=== PATIENT | male | born 1955 | race Caucasian/White ===

== ENCOUNTER 2017-01-12 14:19 | Emergency (ER) | payer SELFPAY ==
[~2017-01-12] VITALS: Ht 175.3 cm; Wt 77.3 kg
[~2017-01-12 14:19] MED LIST: ALPR.25T PO; ALPR.5T PO; ALPR0.5T3; ASP81CT; AZIT-21 PO; BENTYL; CALC600T PO; CYCL10TA45 PO; DICL/MIS50; DICL25CA4; DULO20CA PO; DULO60CA6; DULO60CA6 PO; ESCI5TAB; ESCI5TAB PO; ESCT10T; FLX10C; GUAI120S36 PO; HCT25T PO; HYOS0.3710 PO; IBUP-15 PO; LACT1CAP62 PO; LISI1TAB8; LISI20TA; LISI20TA PO; LISINOPRIL; MELO-195 PO; NF-ESOM40C; OLME20TA21; OLME20TA5 PO; OMEP-10; OMEP20CA6 PO; POTA99TA15 PO; PROM25SU10 PR; RNT150T PO; TRAM50TA2 PO; TRAZ150T42 PO; TRM50T PO; [UNRECOGNIZED DRUG - OTHER]; benicar
[2017-01-12 14:31] VITALS: BP 200/105
--- OUTSIDE RECORDS SUMMARY | 2017-02-15 06:18 | XMS REPORT ---
Author Author CALEB ROMAN [facility] Address [address] [place] [address] Care Team Providers Care Programming Internship Name Role Phone CALEB ROMAN Unavailable PROBLEMS Type Condition ICD9-CM Code [id number] Code Onset Dates Condition Status SNOMED Code Problem Hypertension I10 Active 01755142 Problem Reflux esophagitis 530.11 Active [id number] ALLERGIES Unknown Allergies SOCIAL HISTORY No smoking Hx information available PLAN OF CARE VITAL SIGNS Height 70 in 2016-04-28 Blood pressure systolic 150 mmHg 2016-04-28 Blood pressure diastolic 88 mmHg 2016-04-28 MEDICATIONS Unknown Medications RESULTS No Results PROCEDURES No Known procedures IMMUNIZATIONS No Known Immunizations
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
--- OUTSIDE RECORDS SUMMARY | 2017-02-15 06:18 | XMS REPORT ---
Author CALEB Rai [facility] e[employer] Address Unknown Phone Unavailable Care Team Providers Care Drafter Plumbing Name Role Phone CALEB ROMAN CP Unavailable Allergies, Adverse Reactions, Alerts Substance Reaction Event Type Codeine-Guaifenesin hives Drug Allergy Problems Problem Type Condition Code Onset Dates Condition Status Problem Reflux esophagitis 530.11 Active Assessment Hypertension I10 Active Problem Hypertension I10 Active Medications Medication Code System Code Instructions Start Date End Date Status Dosage Zaditor [facility] [address]-89 0.025 % Ophthalmic Twice a day as needed for itchy eye March 23, 2015 1 drop into affected eye Lisinopril-Hydrochlorothiazide [facility] [id number] 20-12.5 MG Orally Once a day 1 tablet Procedures Procedure Coding System Code Date Office Visit, Est Pt., Level 3 CPT-4 25315 Oct 22, 2015 Vital Signs Date/Time: Oct 22, 2015 Temperature 98.7 F Weight 191.0 lbs Height 70 in BMI 27.40 Index Blood Pressure Diastolic 77 mmHg Blood Pressure Systolic 175 mmHg Cardiac Monitoring Heart Rate 80 bpm Results No Known Results Summary Purpose eClinicalWorks Submission
--- OUTSIDE RECORDS SUMMARY | 2017-02-15 06:18 | XMS REPORT ---
Demographics Address [address] [place] [address] Preferred Language Unknown Marital Status Unknown [employer] Affiliation Unknown Race White Ethnic Group Not or Author Author CALEB ROMAN [facility] eClinical[employer] Address Unknown Phone Unavailable Care Team Providers Care Piping Drafter Name Role Phone CALEB ROMAN Unavailable Allergies No Known Allergies Problems Problem Type Condition Code Onset Dates Condition Status Problem Palpitations 785.1 Active Problem Other abnormal glucose 790.29 Active Problem Acute bronchitis 466.0 Active Problem Reflux esophagitis 530.11 Active Medications Medication Code System Code Instructions Start Date End Date Status Dosage Lisinopril-Hydrochlorothiazide [facility] [address]-49 20-12.5 MG Orally Once a day December 22, 2014 1 tablet Results No Known Results Summary Purpose eClinicalWorks Submission
--- OUTSIDE RECORDS SUMMARY | 2017-02-15 06:18 | XMS REPORT ---
Demographics Address [address] [place] [address] Preferred Language Unknown Marital Status Unknown [employer] Affiliation Unknown Race White Ethnic Group Not or Author Author CALEB ROMAN [facility] eClinical[employer] Address Unknown Phone Unavailable Care Team Providers Care Hse Coordinator Name Role Phone CALEB ROMAN CP Unavailable Allergies No Known Allergies Problems Problem Type Condition ICD-9 Code Onset Dates Condition Status Problem Palpitations 785.1 Active Problem Other abnormal glucose 790.29 Active Problem Acute bronchitis 466.0 Active Problem Reflux esophagitis 530.11 Active Medications Medication Code System Code Instructions Start Date End Date Status Dosage Lisinopril-Hydrochlorothiazide [facility] [address]-90 20-12.5 MG Orally Once a day December 22, 2014 1 tablet Results No Known Results Summary Purpose eClinicalWorks Submission
== END 2017-01-12 15:18 | disposition left against medical advice (07) ==
LOC: EDUNIT# 14:19 → ER 14:22
DX: I10 Essential (primary) hypertension (principal); Z53.21 Procedure and treatment not carried out due to patient leaving prior to being seen by health care provider
CPT/HCPCS: 99283

== ENCOUNTER 2017-05-09 19:48 | Emergency (ER) | payer SELFPAY ==
[~2017-05-09] VITALS: Ht 175.3 cm; Wt 77.3 kg
[2017-05-09] MEDS ORDERED: lisINopril 10 MG (PRINIVIL) TAB PO ONE (20:30)
--- NOTE | 2017-05-09 20:38 | Diagnostic Imaging Report ---
INDICATION: Injury to left elbow. EXAMINATION: AP, oblique and lateral views of the left elbow were obtained. FINDINGS: No fracture or acute bony abnormality is seen. There is some osteophyte formation of the olecranon process. There is soft tissue swelling, dorsally. IMPRESSION: No acute fracture or acute bony abnormality. Dictated by: Dictated on workstation # [id number]
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
[2017-05-09] MEDS ORDERED: LISI10TA2 PO (20:59)
[2017-05-09] MEDS ORDERED: SULF1TAB35 PO (20:59)
[2017-05-09 21:05] VITALS: BP 154/90
== END 2017-05-09 21:05 | disposition home or self-care (01) ==
LOC: EDUNIT# 19:48 → ER 19:50
DX: S59.902A Unspecified injury of left elbow, initial encounter (principal); M70.22 Olecranon bursitis, left elbow; I10 Essential (primary) hypertension; I25.2 Old myocardial infarction; K21.9 Gastro-esophageal reflux disease without esophagitis; M19.90 Unspecified osteoarthritis, unspecified site; E11.9 Type 2 diabetes mellitus without complications; F41.9 Anxiety disorder, unspecified; F32.9 Major depressive disorder, single episode, unspecified; Z98.1 Arthrodesis status; W22.09XA Striking against other stationary object, initial encounter
CPT/HCPCS: 73080; 99283

== ENCOUNTER 2017-05-18 11:59 | Emergency (ER) | payer SELFPAY ==
[~2017-05-18] VITALS: Ht 175.3 cm; Wt 80.5 kg
[~2017-05-18 11:59] MED LIST changes: +LISI10TA2 PO; +SULF1TAB35 PO
[2017-05-18] MEDS ORDERED: AUGMENTIN 875 MG TAB (AMOXICILLIN/CLAVULANATE) PO SCH (12:45)
[2017-05-18] MEDS ORDERED: TRAM50TA2 PO (12:45)
[2017-05-18] MEDS ORDERED: AMOX-358 PO (12:45)
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
--- NOTE | 2017-05-18 12:55 | Diagnostic Imaging Report ---
INDICATION: Left elbow pain and redness. COMPARISON: 05/09/2017. FINDINGS: Three views of the left elbow show no fractures, dislocations, or other acute bony abnormalities identified. Joint spaces are well maintained throughout. There is some soft tissue swelling, posteriorly. No radiopaque foreign bodies are identified. IMPRESSION: Posterior soft tissue swelling, but no radiographic evidence of underlying acute fracture or dislocation of the left elbow. Dictated by: Dictated on workstation # [id number]
[2017-05-18 13:18] VITALS: BP 130/76
== END 2017-05-18 13:18 | disposition home or self-care (01) ==
LOC: EDUNIT# 11:59 → ER 12:02
DX: L03.114 Cellulitis of left upper limb (principal); I25.2 Old myocardial infarction; I10 Essential (primary) hypertension; K21.9 Gastro-esophageal reflux disease without esophagitis; M19.90 Unspecified osteoarthritis, unspecified site; E11.9 Type 2 diabetes mellitus without complications; F41.9 Anxiety disorder, unspecified; F32.9 Major depressive disorder, single episode, unspecified
CPT/HCPCS: 73080; 99283

== ENCOUNTER 2017-12-22 10:20 | Emergency (ER) | payer SELFPAY ==
[~2017-12-22] VITALS: Ht 175.3 cm; Wt 77.6 kg
[~2017-12-22 10:20] MED LIST changes: +AMOX-358 PO
--- OUTSIDE RECORDS SUMMARY | 2017-12-22 10:28 | XMS REPORT | Continuity of Care Document ---
Author Author Counts Include [facility] At [facility] Address Unknown Phone Unavailable Allergies Active Description Code Type Severity Reaction Onset Reported/Identified Relationship to Patient Clinical Status Yes codeine [id number] Drug Allergy Unknown RASH 05/31/2010 Yes codeine Drug Allergy N/A N/A 06/03/2010 Medications There is no data. Problems Date Dx Coded Attending Type Code [...] 311 DEPRESSIVE DISORDER NOS 06/03/2010 401.9 HYPERTENSION ( SYSTEMIC) 06/03/2010 564.1 IRRITABLE BOWEL SYNDROME 06/03/2010 CALEB ROMAN MD 311 DEPRESSIVE DISORDER NOS 06/03/2010 CALEB ROMAN MD 401.9 HYPERTENSION (SYSTEMIC) 06/03/2010 JESSIE CLIFFORD, CALEB 564.1 IRRITABLE BOWEL SYNDROME 06/03/2010 JESSIE CLIFFORD, CALEB 311 DEPRESSIVE DISORDER NOS 06/03/2010 JESSIE CLIFFORD, CALEB 401.9 HYPERTENSION (SYSTEMIC) 06/03/2010 CALEB ROMAN MD 564.1 IRRITABLE BOWEL SYNDROME 06/03/2010 JESISE CLIFFORD, CALEB 311 DEPRESSIVE DISORDER NOS 06/03/2010 [...] 786.59 CHEST PAIN NEC 03/11/2011 Ot V58.69 OT MED,LT, CURRENT USE 07/01/2011 924.9 CONTUSION OF UNSPECIFIED SITE [...] Ot 388.70 OTALGIA NOS 01/06/2014 LISA LEVY ACETYLENE TORCH BURNER Ot 465.9 ACUTE URI NOS 01/06/2014 LISA LEVY ACETYLENE TORCH BURNER Ot 490 BRONCHITIS NOS 01/23/2014 CALEB ROMAN [...] OTHER TOBACCO PRODU 04/07/2016 ERVIN CLIFFORD, DEBORAH Richie Ot M17.11 UNILATERAL PRIMARY OSTEOARTHRITIS, RIGHT 01/13/2017 ERVIN CLIFFORD, DEBORAH Quiroz Ot I10 ESSENTIAL (PRIMARY) HYPERTENSION 01/13/2017 ERVIN CLIFFORD, DEBORAH Quiroz Ot Z53.21 PROC/TRTMT NOT CRD OUT D/T PT LV BEF SEE 05/09/2017 BHUMIKA CLIFFORD, GEOVANNA Cabrera Ot E11.9 TYPE 2 DIABETES MELLITUS WITHOUT COMPLIC 05/09/2017 GEOVANNA BAI MD Ot F32.9 MAJOR DEPRESSIVE DISORDER, SINGLE EPISOD 05/09/2017 GEOVANNA BAI MD Ot F41.9 ANXIETY DISORDER, UNSPECIFIED 05/09/2017 GEOVANNA BAI MD Ot I10 ESSENTIAL (PRIMARY) HYPERTENSION 05/09/2017 GEOVANNA BAI MD Ot I25.2 OLD MYOCARDIAL INFARCTION 05/09/2017 GEOVANNA BAI MD Ot K21.9 GASTRO-ESOPHAGEAL REFLUX DISEASE WITHOUT 05/09/2017 GEOVANNA BAI MD Ot M19.90 UNSPECIFIED OSTEOARTHRITIS, UNSPECIFIED 05/09/2017 GEOVANNA BAI MD Ot M25.522 PAIN IN LEFT ELBOW 05/09/2017 GEOVANNA BAI MD Ot M70.22 OLECRANON BURSITIS, LEFT ELBOW 05/09/2017 GEOVANNA BAI MD Ot S59.902A UNSPECIFIED INJURY OF LEFT ELBOW, INITIA 05/09/2017 GEOVANNA BAI MD Ot W22.09XA STRIKING AGAINST OTHER STATIONARY OBJECT 05/09/2017 BHUMIKA CLIFFORD, GEOVANNA Cabrera Ot Z98.1 ARTHRODESIS STATUS 05/18/2017 LISA LEVY APRN Ot E11.9 TYPE 2 DIABETES MELLITUS WITHOUT COMPLIC 05/18/2017 LISA LEVY APRN Ot F32.9 MAJOR DEPRESSIVE DISORDER, SINGLE EPISOD 05/18/2017 LISA LEVY APRN Ot F41.9 ANXIETY DISORDER, UNSPECIFIED 05/18/2017 LISA LEVY APRN Ot I10 ESSENTIAL (PRIMARY) HYPERTENSION 05/18/2017 LISA LEVY APRN Ot I25.2 OLD MYOCARDIAL INFARCTION 05/18/2017 LISA LEVY APRN Ot K21.9 GASTRO-ESOPHAGEAL REFLUX DISEASE WITHOUT 05/18/2017 LISA LEVY APRN Ot L03.114 CELLULITIS OF LEFT UPPER LIMB 05/18/2017 LISA LEVY APRN Ot M19.90 UNSPECIFIED OSTEOARTHRITIS, UNSPECIFIED 05/18/2017 LISA LEVY APRN Ot M25.522 PAIN IN LEFT ELBOW Procedures Code Description [place] [address] ROUTINE VENIPUNCTURE 12/28/2013 [id number] GFR CALC (RESULT ONLY) 12/28/2013 50480 CMP 12/28/2013 72116 LIPID PANEL 12/28/2013 86171 A1C (IN-HOUSE) 01/06/2014 Results There is no data. Encounters ACCT No. Visit Date/Time Discharge Status Pt. Type Provider Facility Loc./Unit Complaint [id number] 01/23/2014 13:13:00 01/23/2014 23:59:59 [facility] Outpatient CALEB ROMAN MD [id number] 01/06/2014 12:11:00 01/06/2014 23:59:59 [facility] Outpatient CALEB ROMAN MD [id number] 12/28/2013 12:39:00 12/28/2013 23:59:59 [facility] Outpatient CALEB ROMAN MD [id number] 12/15/2013 16:45:00 12/15/2013 23:59:59 [facility] Outpatient CALEB ROMAN MD [id number] 04/05/2013 15:03:00 04/05/2013 23:59:59 [facility] Outpatient CALEB ROMAN MD [id number] 03/24/2013 13:13:00 Document Registration [id number] 05/18/2017 12:02:00 05/18/2017 13:18:00 DIS Emergency LISA LEVY APRN Via [facility] ER LT ELBOW PAIN/BURNING [id number] 05/09/2017 19:50:00 05/09/2017 21:05:00 DIS Emergency GEOVANNA BAI MD [facility] ER L ELBOW PAIN [id number] 01/12/2017 14:22:00 01/12/2017 15:18:00 DIS Outpatient DEBORAH MUELLER MD Via [facility] ER HIGH BLOOD PRESSURE [id number] 04/04/2016 09:32:00 04/04/2016 12:39:00 DIS Emergency DEBORAH MUELLER MD [facility] ER RIGHT KNEE PAIN [id number] 11/06/2014 17:32:00 11/06/2014 19:19:00 DIS Emergency CHIDI CHAO DO Via [facility] ER R SIDE CRAMPING [id number] 01/06/2014 17:50:00 01/06/2014 19:17:00 DIS Emergency LISA LEVY APRN Via [facility] ER EAR ACHE [id number] 03/28/2013 09:37:00 03/28/2013 16:01:00 DIS Emergency NEVILLE GUPTA [facility] ER DIARRHEA [id number] 12/08/2014 04:45:00 Document Registration [id number] 11/06/2014 17:32:00 Document Registration [id number] 03/11/2011 10:17:00 Document Registration [id number] 02/12/2011 16:05:00 Document Registration [id number] 02/07/2011 18:08:00 Document Registration [id number] 02/06/2011 17:03:00 Document Registration [id number] 11/06/2010 19:21:00 Document Registration [id number] 08/08/2010 16:12:00 Document Registration [id number] 05/30/2010 23:50:00 Document Registration [id number] 05/15/2010 10:28:00 Document Registration [id number] 04/13/2010 17:24:00 Document Registration [id number] 04/09/2010 10:49:00 Document Registration [id number] 03/09/2010 23:20:00 Document Registration [id number] 03/05/2010 22:40:00 Document Registration
[2017-12-22] MEDS ORDERED: METF500T4 PO (10:43)
[2017-12-22] MEDS ORDERED: GLIP10TA13 PO (10:44)
[2017-12-22] MEDS ORDERED: NS IV 1000 ML 1,000 ML IV SCH (11:00)
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
[2017-12-22 11:33] LABS: BASOPHILS % (AUTO) 1 % (0-10); EOSINOPHILS # (AUTO) 0.2 10^3/uL (0.0-0.3); EOSINOPHILS % (AUTO) 4 % (0-10); HEMATOCRIT 42 % (40-54); HEMOGLOBIN 15.2 G/DL (13.3-17.7); LYMPHOCYTES # (AUTO) 0.6 X 10^3 (1.0-4.0); LYMPHOCYTES % (AUTO) 13 % (12-44); MEAN CORPUSCULAR HEMOGLOBIN 32 PG (25-34); MEAN CORPUSCULAR HGB CONC 37 G/DL (32-36); MEAN CORPUSCULAR VOLUME 88 FL (80-99); MEAN PLATELET VOLUME 12.5 FL (7.4-10.4); MONOCYTES # (AUTO) 0.6 X 10^3 (0.0-1.0); MONOCYTES % (AUTO) 12 % (0-12); NEUTROPHILS # (AUTO) 3.3 X 10^3 (1.8-7.8); NEUTROPHILS % (AUTO) 70 % (42-75); PLATELET COUNT 105 10^3/uL (130-400); RED BLOOD COUNT 4.74 10^6/uL (4.35-5.85); RED CELL DISTRIBUTION WIDTH 12.1 % (10.0-14.5); WHITE BLOOD COUNT 4.7 10^3/uL (4.3-11.0)
[2017-12-22 11:37] LABS: ALANINE AMINOTRANSFERASE 107 U/L (0-55); ALKALINE PHOSPHATASE 94 U/L (40-136); BILIRUBIN,TOTAL 0.9 MG/DL (0.1-1.0); BUN/CREATININE RATIO 11; CALCIUM 8.9 MG/DL (8.5-10.1); CARBON DIOXIDE 25 MMOL/L (21-32); CHLORIDE 104 MMOL/L (98-107); CREATININE SERUM 1.07 MG/DL (0.60-1.30); GFR ESTIMATED > 60; GLUCOSE 266 MG/DL (70-105); POTASSIUM 4.1 MMOL/L (3.6-5.0); SODIUM 136 MMOL/L (135-145); TOTAL PROTEIN 6.9 GM/DL (6.4-8.2)
--- NOTE | 2017-12-22 11:56 | Diagnostic Imaging Report ---
INDICATION: Cough PA and lateral chest obtained at 1150 hrs am. Heart and mediastinal silhouette are normal in appearance. The lungs are clear. There is no pneumothorax or pleural fluid. IMPRESSION: No acute process in the chest. Dictated by: Dictated on workstation # [id number]
[2017-12-22 12:28] VITALS: BP 148/80
== END 2017-12-22 12:27 | disposition home or self-care (01) ==
LOC: EDUNIT# 10:20 → ER 10:22
DX: B34.9 Viral infection, unspecified (principal); I25.2 Old myocardial infarction; I10 Essential (primary) hypertension; E11.9 Type 2 diabetes mellitus without complications; F41.9 Anxiety disorder, unspecified; F32.9 Major depressive disorder, single episode, unspecified; K21.9 Gastro-esophageal reflux disease without esophagitis; F17.290 Nicotine dependence, other tobacco product, uncomplicated; Z87.19 Personal history of other diseases of the digestive system
CPT/HCPCS: 36415; 71046; 80053; 85025; 96360

== ENCOUNTER 2018-01-26 09:18 | Emergency (ER) | payer OTHER ==
[~2018-01-26] VITALS: Ht 175.3 cm; Wt 81.6 kg
[~2018-01-26 09:18] MED LIST changes: +GLIP10TA13 PO; +METF500T5 PO
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
[2018-01-26] MEDS ORDERED: TRAM-42 PO (10:47)
--- NOTE | 2018-01-26 10:48 | Diagnostic Imaging Report ---
PATIENT HISTORY: Fall 3 weeks ago, pain in the right ribs and right humerus. TECHNIQUE: Two views of the right humerus COMPARISON: None FINDINGS: No acute fracture or dislocation is seen in the right humerus. Alignment appears normal. There are minimal degenerative changes in the right acromioclavicular joint. IMPRESSION: No acute osseous abnormality seen in the right humerus. Dictated by: Dictated on workstation # [id number]
--- NOTE | 2018-01-26 10:51 | Diagnostic Imaging Report ---
INDICATION: 3 weeks post fall. Right-sided rib and arm pain.. TECHNIQUE: Single view chest, along with 3 views right ribs 11:01 AM. CORRELATION STUDY: Chest 12/22/2017 FINDINGS: The heart size, mediastinal configuration and pulmonary vascularity are within normal limits. The lungs are clear with no consolidating infiltrate. There is limited depth of inspiration. There is no significant effusion or pneumothorax. There is no acute displaced right-sided rib fracture. Fusion hardware of the lower cervical spine is present. IMPRESSION: 1. No radiographic findings to suggest acute abnormality of the chest. 2. Negative for acute displaced right-sided rib fracture. Dictated by: Dictated on workstation # [id number]
[2018-01-26 11:00] VITALS: BP 155/87
== END 2018-01-26 11:00 | disposition home or self-care (01) ==
LOC: EDUNIT# 09:18 → ER 09:20
DX: S43.004A Unspecified dislocation of right shoulder joint, initial encounter (principal); S20.211A Contusion of right front wall of thorax, initial encounter; I25.2 Old myocardial infarction; I10 Essential (primary) hypertension; E11.9 Type 2 diabetes mellitus without complications; F41.9 Anxiety disorder, unspecified; F32.9 Major depressive disorder, single episode, unspecified; K21.9 Gastro-esophageal reflux disease without esophagitis; F17.290 Nicotine dependence, other tobacco product, uncomplicated; Z88.5 Allergy status to narcotic agent; Z87.19 Personal history of other diseases of the digestive system; Z79.84 Long term (current) use of oral hypoglycemic drugs; W01.0XXA Fall on same level from slipping, tripping and stumbling without subsequent striking against object, initial encounter
CPT/HCPCS: 71101; 73060

== ENCOUNTER → 2018-03-16 | Outpatient (CLI) | payer OTHER ==
[~2018-03-16] MED LIST changes: +TRAM-42 PO
--- NOTE | 2018-03-16 14:18 | Diagnostic Imaging Report ---
PROCEDURE: MRI right joint upper extremity without contrast. TECHNIQUE: Multiplanar, multisequence MR imaging of the right shoulder was performed without contrast. COMPARISON: Right shoulder pain. INDICATION: Right shoulder pain. FINDINGS: Rotator cuff: Complete tear of the infraspinatus and near-complete tear of the supraspinatus. A few of the anterior-most insertional fibers of the supraspinatus remain intact. The torn fibers of the supraspinatus and infraspinatus are retracted to the level of the glenohumeral joint. Mild fatty atrophy of both the supraspinatus and infraspinatus is present. The teres minor is normal. Subscapularis remains intact. Glenoid labrum: By non-arthrogram imaging, the glenoid labrum appears intact. No para-labral cyst. Long head of biceps: Long head of biceps is normally positioned within the bicipital groove. The intracapsular segment is intact. Bones and cartilage: Humeral head is normal in morphology without fracture. Subcortical edema in the posterior humeral head is likely reactive due to rotator cuff tear and overlying tendinopathy. No glenohumeral chondromalacia. The acromioclavicular joint is normal in alignment without significant degenerative change. Soft tissues: No glenohumeral joint effusion. No MRI findings to suggest adhesive capsulitis. Fluid in the subacromial and subdeltoid space is compatible with full-thickness cuff tear. IMPRESSION: 1. Complete tear of the infraspinatus with near-complete tear of the supraspinatus. The torn fibers are retracted to the level of the glenohumeral joint, and there is mild atrophy of both muscle bellies. 2. Long head of biceps remains intact. 3. Subacromial and subdeltoid bursitis is compatible with full-thickness cuff tear. Dictated by: Dictated on workstation # [id number]
== END ==
LOC: RAD 12:52
PROVIDERS: ATTEND Nurse Practitioner Family
DX: M75.121 Complete rotator cuff tear or rupture of right shoulder, not specified as traumatic (principal); M62.511 Muscle wasting and atrophy, not elsewhere classified, right shoulder
CPT/HCPCS: 73221

== ENCOUNTER 2018-05-03 08:49 | Emergency (ER) | payer OTHER ==
[~2018-05-03] VITALS: Ht 175.3 cm; Wt 83.0 kg
--- OUTSIDE RECORDS SUMMARY | 2018-05-03 08:55 | XMS REPORT ---
Author Author CALEB ROMAN Organization [facility] Address [address] [place] [address] Care Team Providers Care Line Palletizer Name Role Phone CALEB ROMAN Unavailable PROBLEMS Type Condition ICD9-CM Code OEG47-VC Code Onset Dates Condition Status SNOMED Code Problem Acute pain of right shoulder M25.511 Active 88721489 Problem Type 2 diabetes mellitus without complication, without long-term current use of insulin E11.9 Active 275342374 Problem Hypertension I10 Active 05584856 Problem Tear of right rotator cuff, unspecified tear extent M75.101 Active 814717775 ALLERGIES Substance Reaction Event Type Date Status Codeine-Guaifenesin hives Drug Allergy Dec, Active ENCOUNTERS Encounter Location Date Diagnosis [place] [id number] [place] [address]- [address] Mar, [place] [address] [address] February, Acute pain of right shoulder M25.511 ; Hypertension I10 and Type 2 diabetes mellitus without complication, without long-term current use of insulin E11.9 [place] [id number] [place] [address]- 7121 Dec, [facility] [id number] [place] [address] 21841- 1293 Dec, Type 2 diabetes mellitus without complication, without long- term current use of insulin E11.9 [place] [id number] [place] [address]- [address] Dec, [place] [id number] [place] [address]- 1986 Jun, Hypertension I10 [place] [id number] [place] [address] [place] [address] Apr, [facility] [address] [place] [address] Oct, Hypertension I10 [facility] [id number] [place] [address] 8[address] 05 Oct, 2015 [facility] [address] [place] [address] 160[address] May, [facility] [address] [facility] [id number] [place] [address]- 0413 12 Mar, 2015 Allergic conjunctivitis 372.14 [facility] [id number] [place] [address] 8184 14 Jan, 2015 [facility] [address] [place] [address] 6787 13 Jan, 2015 [facility] [address] [place] [address] 1662 Dec, [facility] [address] [place] [address] 3[address] Dec, [facility] [address] [place] [address] 0577 27 Nov, 2014 [facility] [address] [place] [address] 3107 Oct, [facility] [address] [place] [address] 4542 14 Jan, 2014 [facility] [address] [id number] [place] [address]- 1649 14 Jan, 2014 [facility] [address] [place] [address] 4[address] 31 Dec, 2013 [facility] [address] [facility] [id number] [place] [address]- 6516 31 Dec, 2013 [facility] [address] [place] [address] 3471 Dec, [facility] [place] [facility] [address] [id number] [place] [address]- 7571 Dec, [facility] [place] [facility] [address] [id number] [place] [address]- 5813 Dec, [facility] [place] [facility] [address] [id number] [place] [address]- 9658 Dec, [facility] [place] [facility] [address] [id number] [place] [address]- 2680 Dec, [facility] [place] [facility] [address] [id number] [place] [address]- 7360 Dec, [facility] [place] [facility] [address] [id number] [place] [address]- 2338 Dec, [facility] [place] [facility] [address] [id number] [place] [address]- 5783 Dec, [facility] [place] [facility] [address] [id number] [place] [address]- 0965 Dec, [facility] [place] [facility] [address] [id number] [place] [address]- 3834 Oct, [facility] [place] [facility] [address] [id number] [place] [address]- 9584 Oct, [facility] [place] [facility] [address] [id number] [place] [address]- 3243 Sep, [facility] [place] [facility] [address] [id number], [place] [address] Mar, [facility] [place] [facility] [address] [id number] [place] [address]- 7483 24 Mar, 2013 [facility] [place] [facility] [address] [id number] [place] [address]- 6202 Mar, [facility] [place] [facility] [address] [id number] [place] [address]- 1999 Jan, [facility] [place] [facility] [id number] [address] 79[address] Jan, [facility] [address], [place] [address] Jan, [facility] [address], [place] [address]- 8724 Dec, [facility] [address], [place] [address] 5674 Dec, [facility] [address] [address]- 3283 Oct, [facility] [id number] [place] [address] 38462- 6332 Oct, [facility] [address], [place] [address]- 0462 Oct, [facility] [id number] [place] [address] 13804- 2940 Oct, [facility] [address], [place] [address]- 0042 Sep, [facility] [address] [address]- 6332 Sep, [facility] [id number] [address]- [address] Sep, IMMUNIZATIONS No Known Immunizations SOCIAL HISTORY Never Assessed REASON FOR VISIT blood sugar, PT notes it was elevated to 600 last night. PT has had frequent urination and cramping. -[place] [facility] PLAN OF CARE Activity Details Follow Up 4 Weeks Reason: VITAL SIGNS Height 70 in 2017-12-17 Weight 181.6 lbs 2017-12-17 Temperature 98.4 degrees Fahrenheit 2017-12-17 Heart Rate 80 bpm 2017-12-17 Respiratory Rate 20 2017-12-17 BMI 26.05 kg/m2 2017-12-17 Blood pressure systolic 150 mmHg 2017-12-17 Blood pressure diastolic 78 mmHg 2017-12-17 MEDICATIONS Medication Instructions Dosage Frequency Start Date End Date Duration Status Metformin HCl 1000 MG Orally Twice a day 1 tablet with meals 12h 08 Dec, 2017 30 day(s) Active Lisinopril-Hydrochlorothiazide 20-12.5 MG Orally Once a day 1 tablet 24h 30 Active GlipiZIDE 10 mg Orally Once a day 1 tablet 24h Dec, 30 day(s) Active RESULTS No Results PROCEDURES Procedure Date Ordered Result Body Site COMPREHEN METABOLIC PANEL December 17, 2017 INSTRUCTIONS MEDICATIONS ADMINISTERED No Known Medications MEDICAL (GENERAL) HISTORY Type Description Date Medical History hypertension Medical History chronic pancreatitis Medical History irritable bowel syndrome Medical History depression Medical History bone spur - right hip Medical History borderline diabetic Surgical History back surgery - c-spine
--- OUTSIDE RECORDS SUMMARY | 2018-05-03 08:56 | XMS REPORT ---
Author Author CALEB ROMAN Organization [facility] Address [address] [place] [address] Care Team Providers Care Animal Cytologist Name Role Phone CALEB ROMAN Unavailable PROBLEMS Type Condition ICD9-CM Code QRA05-HB Code Onset Dates Condition Status SNOMED Code Problem Type 2 diabetes mellitus without complication, without long-term current use of insulin E11.9 Active 508342133 Problem Hypertension I10 Active 16653838 Problem Reflux esophagitis 530.11 Active 579837910 ALLERGIES Substance Reaction Event Type Date Status Codeine-Guaifenesin hives Drug Allergy Jun, Active ENCOUNTERS Encounter Location Date Diagnosis [facility] [id number] [place] [address] 78639- 0737 Dec, [facility] [id number] [place] [address] 41628- 5944 Dec, Type 2 diabetes mellitus without complication, without long- term current use of insulin E11.9 [facility] [id number] [place] [address] 35178- 7866 Dec, [facility] [id number] [place] [address] 72956- 3011 Jun, Hypertension I10 [facility] [id number] [place] [address] 55952- 9196 Apr, [facility] [id number] [place] [address] 92205- 8188 Oct, Hypertension I10 [facility] [id number] [place] [address] 59636- 0271 Oct, [facility] [id number] [place] [address] 13734- 2681 May, [place] [address] [id number] [place] [address]- 4200 12 Mar, 2015 Allergic conjunctivitis 372.14 [facility] [address] [id number] [place] [address]- 6296 14 Jan, 2015 [facility] [address] [id number] [place] [address]- 9407 13 Jan, 2015 [facility] [address] [id number] [place] [address]- 8696 13 Dec, 2014 [facility] [address] [id number] [place] [address]- 6652 13 Dec, 2014 [facility] [address] [id number] [place] [address]- 3656 27 Nov, 2014 [facility] [address] [facility] [id number] [place] [address]- 3844 Oct, [facility] [address] [facility] [id number] [place] [address]- 8862 14 Jan, 2014 [facility] [address] [id number] [place] [address]- 7055 14 Jan, 2014 [facility] [address] [facility] [id number] [place] [address]- 9039 31 Dec, 2013 [facility] [address] [id number] [place] [address]- 8940 31 Dec, 2013 [facility] [address] [id number] [place] [address]- 5946 28 Dec, 2013 [facility] [place] [facility] [address] [id number] [place] [address]- 9831 28 Dec, 2013 [facility] [place] [facility] [address] [id number] [place] [address]78 27 Dec, 2013 [facility] [place] [facility] [address] [facility] [id number] [place] [address]- 6979 26 Dec, 2013 [facility] [place] [facility] [address] [id number] [place] [address]- 5288 Dec, [facility] [address] [id number] [place] [address]- 9842 Dec, [facility] [place] [facility] [address] [id number] [place] [address] Dec, [facility] [place] [facility] [address] [id number] [place] [address]- 8437 Dec, [facility] [place] [facility] [address] [id number] [place] [address]- 7567 Dec, [facility] [place] [facility] [address] [id number] [place] [address]- 3050 Oct, [facility] [place] [facility] [address] [id number] [place] [address]- 2625 Oct, [facility] [address] [id number] [place] [address]- 4877 Sep, [facility] [address] [id number] [place] [address]- 2905 Mar, [facility] [place] [facility] [address] [id number] [place] [address]- 2089 Mar, [facility] [place] [facility] [address] [id number] [place] [address]- 7777 Mar, [facility] [address] [id number] [place] [address]- 4230 Jan, [facility] [place] [facility] [address] [id number] [place] [address]- 7028 Jan, [facility] [place] [facility] [address] [id number] [place] [address]- 4547 Jan, [facility] [place] [facility] [address] [id number] [place] [address]- 0723 Dec, [facility] [place] [facility] [address] [id number] [place] [address]- 8886 Dec, [facility] [place] [facility] [address] [facility] [id number], [place] [address]- 0131 Oct, [facility] [address] [facility] [id number][place] [address] [address] Oct, [facility] [address] [facility] [id number], [place] [address]- 4626 Oct, [facility] [address] [facility] [id number], [place] [address]- 2289 Oct, [facility] [address] [facility] [id number], [place] [address]- 0544 Sep, [facility] [address] [facility] [id number], [place] [address]- 7429 Sep, [facility] [address] [facility] [id number], [place] [address]- 0969 Sep, IMMUNIZATIONS No Known Immunizations SOCIAL HISTORY Never Assessed REASON FOR VISIT Blood Pressure- Mu [facility]A PLAN OF CARE Activity Details Follow Up 1 Year Reason: VITAL SIGNS Height 70 in 2017-06-12 Weight 182.3 lbs 2017-06-12 Temperature 97.6 degrees Fahrenheit 2017-06-12 Heart Rate 82 bpm 2017-06-12 Respiratory Rate 18 2017-06-12 BMI 26.15 kg/m2 2017-06-12 Blood pressure systolic 152 mmHg 2017-06-12 Blood pressure diastolic 88 mmHg 2017-06-12 MEDICATIONS Medication Instructions Dosage Frequency Start Date End Date Duration Status Lisinopril-Hydrochlorothiazide 20-12.5 MG Orally Once a day 1 tablet 24h 30 Active RESULTS No Results PROCEDURES No Known procedures INSTRUCTIONS MEDICATIONS ADMINISTERED No Known Medications MEDICAL (GENERAL) HISTORY Type Description Date Medical History hypertension Medical History chronic pancreatitis Medical History irritable bowel syndrome Medical History depression Medical History bone spur - right hip Medical History borderline diabetic Surgical History back surgery - c-spine
--- OUTSIDE RECORDS SUMMARY | 2018-05-03 08:58 | XMS REPORT | Continuity of Care Document ---
Author Author [facility] Address Unknown Phone Unavailable Allergies Active Description Code Type Severity Reaction Onset Reported/Identified Relationship to Patient Clinical Status Yes codeine [id number] Drug Allergy Unknown RASH 05/31/2010 Yes codeine [...] Ot 388.70 OTALGIA NOS 01/06/2014 LISA LEVY FITTER WELDER Ot 465.9 ACUTE URI NOS 01/06/2014 LISA LEVY FITTER WELDER Ot 490 BRONCHITIS NOS 01/23/2014 CALEB ROMAN [...] OTHER STATIONARY OBJECT 05/09/2017 BHUMIKA CLIFFORD, GEOVANNA Deborah Ot Z98.1 ARTHRODESIS STATUS 05/18/2017 LISA LEVY FITTER WELDER Ot E11.9 TYPE 2 DIABETES MELLITUS WITHOUT COMPLIC 05/18/2017 LISA LEVY FITTER WELDER Ot F32.9 MAJOR DEPRESSIVE DISORDER, SINGLE EPISOD 05/18/2017 LISA LEVY FITTER WELDER Ot F41.9 ANXIETY DISORDER, UNSPECIFIED 05/18/2017 LISA LEVY FITTER WELDER Ot I10 ESSENTIAL (PRIMARY) HYPERTENSION 05/18/2017 LISA LEVY FITTER WELDER Ot I25.2 OLD MYOCARDIAL INFARCTION 05/18/2017 LISA LEVY FITTER WELDER Ot K21.9 GASTRO-ESOPHAGEAL REFLUX DISEASE WITHOUT 05/18/2017 LISA LEVY FITTER WELDER Ot L03.114 CELLULITIS OF LEFT UPPER LIMB 05/18/2017 LISA LEVY APRN Ot M19.90 UNSPECIFIED OSTEOARTHRITIS, UNSPECIFIED 05/18/2017 LISA LEVY APRN Ot M25.522 PAIN IN LEFT ELBOW 12/22/2017 LISA LEVY APRN Ot B34.9 VIRAL INFECTION, UNSPECIFIED 12/22/2017 LISA LEVY FITTER WELDER Ot E11.9 TYPE 2 DIABETES MELLITUS WITHOUT COMPLIC 12/22/2017 LISA LEVY FITTER WELDER Ot F17.290 NICOTINE DEPENDENCE, OTHER TOBACCO PRODU 12/22/2017 LISA LEVY FITTER WELDER Ot F32.9 MAJOR DEPRESSIVE DISORDER, SINGLE EPISOD 12/22/2017 LISA LEVY FITTER WELDER Ot F41.9 ANXIETY DISORDER, UNSPECIFIED 12/22/2017 LISA LEVY APRN Ot I10 ESSENTIAL (PRIMARY) HYPERTENSION 12/22/2017 LISA LEVY FITTER WELDER Ot I25.2 OLD MYOCARDIAL INFARCTION 12/22/2017 LISA LEVY FITTER WELDER Ot K21.9 GASTRO-ESOPHAGEAL REFLUX DISEASE WITHOUT 12/22/2017 LISA LEVY APRN Ot R05 COUGH 12/22/2017 LISA LEVY APRN Ot Z87.19 PERSONAL HISTORY OF OTHER DISEASES OF TH 12/24/2017 LISA LEVY FITTER WELDER Ot B34.9 VIRAL INFECTION, UNSPECIFIED 12/24/2017 LISA LEVY FITTER WELDER Ot E11.9 TYPE 2 DIABETES MELLITUS WITHOUT COMPLIC 12/24/2017 LISA LEVY APRN Ot F17.290 NICOTINE DEPENDENCE, OTHER TOBACCO PRODU 12/24/2017 LISA LEVY APRN Ot F32.9 MAJOR DEPRESSIVE DISORDER, SINGLE EPISOD 12/24/2017 LISA LEVY APRN Ot F41.9 ANXIETY DISORDER, UNSPECIFIED 12/24/2017 LISA LEVY APRN Ot I10 ESSENTIAL (PRIMARY) HYPERTENSION 12/24/2017 LISA LEVY APRN Ot I25.2 OLD MYOCARDIAL INFARCTION 12/24/2017 LISA LEVY APRN Ot K21.9 GASTRO-ESOPHAGEAL REFLUX DISEASE WITHOUT 12/24/2017 LISA LEVY APRN Ot R05 COUGH 12/24/2017 LISA LEVY APRN Ot Z87.19 PERSONAL HISTORY OF OTHER DISEASES OF 01/26/2018 LISA LEVY APRN Ot E11.9 TYPE 2 DIABETES MELLITUS WITHOUT COMPLIC 01/26/2018 LISA LEVY APRN Ot F17.290 NICOTINE DEPENDENCE, OTHER TOBACCO PRODU 01/26/2018 LISA LEVY APRN Ot F32.9 MAJOR DEPRESSIVE DISORDER, SINGLE EPISOD 01/26/2018 LISA LEVY APRN Ot F41.9 ANXIETY DISORDER, UNSPECIFIED 01/26/2018 LISA LEVY APRN Ot I10 ESSENTIAL (PRIMARY) HYPERTENSION 01/26/2018 LISA LEVY APRN Ot I25.2 OLD MYOCARDIAL INFARCTION 01/26/2018 LISA LEVY APRN Ot K21.9 GASTRO-ESOPHAGEAL REFLUX DISEASE WITHOUT 01/26/2018 LISA LEVY APRN Ot M25.511 PAIN IN RIGHT SHOULDER 01/26/2018 LISA LEVY APRN Ot S20.211A CONTUSION OF RIGHT FRONT WALL OF THORAX, 01/26/2018 LISA LEVY APRN Ot S43.004A UNSPECIFIED DISLOCATION OF RIGHT SHOULDE 01/26/2018 LISA LEVY APRN Ot W01.0XXA FALL SAME LEV FROM SLIP/TRIP W/O STRIKE 01/26/2018 LISA LEVY APRN Ot Z79.84 COMMUNITY RECREATION COORDINATOR (CURRENT) USE OF ORAL HYPOGLYC 01/26/2018 LISA LEVY APRN Ot Z87.19 PERSONAL HISTORY OF OTHER DISEASES OF 01/26/2018 LISA LEVY APRN Ot Z88.5 ALLERGY STATUS TO NARCOTIC AGENT STATUS 01/28/2018 LISA LEVY APRN Ot E11.9 TYPE 2 DIABETES MELLITUS WITHOUT COMPLIC 01/28/2018 LISA LEVY APRN Ot F17.290 NICOTINE DEPENDENCE, OTHER TOBACCO PRODU 01/28/2018 LISA LEVY APRN Ot F32.9 MAJOR DEPRESSIVE DISORDER, SINGLE EPISOD 01/28/2018 LISA LEVY APRN Ot F41.9 ANXIETY DISORDER, UNSPECIFIED 01/28/2018 LISA LEVY APRN Ot I10 ESSENTIAL (PRIMARY) HYPERTENSION 01/28/2018 LISA LEVY APRN Ot I25.2 OLD MYOCARDIAL INFARCTION 01/28/2018 LISA LEVY APRN Ot K21.9 GASTRO-ESOPHAGEAL REFLUX DISEASE WITHOUT 01/28/2018 LISA LEVY APRN Ot M25.511 PAIN IN RIGHT SHOULDER 01/28/2018 LISA LEVY APRN Ot S20.211A CONTUSION OF RIGHT FRONT WALL OF THORAX, 01/28/2018 LISA LEVY APRN Ot S43.004A UNSPECIFIED DISLOCATION OF RIGHT SHOULDE 01/28/2018 LISA LEVY APRN Ot W01.0XXA FALL SAME LEV FROM SLIP/TRIP W/O STRIKE 01/28/2018 LISA LEVY APRN Ot Z79.84 USP (CURRENT) USE OF ORAL HYPOGLYC 01/28/2018 LISA LEVY APRN Ot Z87.19 PERSONAL HISTORY OF OTHER DISEASES OF TH 01/28/2018 LISA LEVY APRN Ot Z88.5 ALLERGY STATUS TO NARCOTIC AGENT STATUS 02/01/2018 LISA LEVY APRN Ot E11.9 TYPE 2 DIABETES MELLITUS WITHOUT COMPLIC 02/01/2018 LISA LEVY APRN Ot F17.290 NICOTINE DEPENDENCE, OTHER TOBACCO PRODU 02/01/2018 LISA LEVY APRN Ot F32.9 MAJOR DEPRESSIVE DISORDER, SINGLE EPISOD 02/01/2018 LISA LEVY APRN Ot F41.9 ANXIETY DISORDER, UNSPECIFIED 02/01/2018 LISA LEVY APRN Ot I10 ESSENTIAL (PRIMARY) HYPERTENSION 02/01/2018 LISA LEVY APRN Ot I25.2 OLD MYOCARDIAL INFARCTION 02/01/2018 LISA LEVY APRN Ot K21.9 GASTRO-ESOPHAGEAL REFLUX DISEASE WITHOUT 02/01/2018 LISA LEVY APRN Ot M25.511 PAIN IN RIGHT SHOULDER 02/01/2018 LISA LEVY APRN Ot S20.211A CONTUSION OF RIGHT FRONT WALL OF THORAX, 02/01/2018 LISA LEVY APRN Ot S43.004A UNSPECIFIED DISLOCATION OF RIGHT SHOULDE 02/01/2018 LISA LEVY APRN Ot W01.0XXA FALL SAME LEV FROM SLIP/TRIP W/O STRIKE 02/01/2018 LISA LEVY APRN Ot Z79.84 USP (CURRENT) USE OF ORAL HYPOGLYC 02/01/2018 LISA LEVY APRN Ot Z87.19 PERSONAL HISTORY OF OTHER DISEASES OF 02/01/2018 LISA LEVY APRN Ot Z88.5 ALLERGY STATUS TO NARCOTIC AGENT STATUS 03/17/2018 PARKER SOTO APRN Ot M62.511 MUSCLE WASTING AND ATROPHY, NEC, RIGHT S 03/17/2018 PARKER SOTO APRN Ot M75.121 COMPLETE ROTATR-CUFF TEAR/RUPTR OF R SILVIA 03/18/2018 PARKER SOTO APRN Ot M62.511 MUSCLE WASTING AND ATROPHY, NEC, RIGHT S 03/18/2018 PARKER SOTO APRN Ot M75.121 COMPLETE ROTATR-CUFF TEAR/RUPTR OF R SILVIA 03/19/2018 LISA LEVY APRN Ot B34.9 VIRAL INFECTION, UNSPECIFIED 03/19/2018 LISA LEVY APRN Ot E11.9 TYPE 2 DIABETES MELLITUS WITHOUT COMPLIC 03/19/2018 LISA LEVY APRN Ot F17.290 NICOTINE DEPENDENCE, OTHER TOBACCO PRODU 03/19/2018 LISA LEVY APRN Ot F32.9 MAJOR DEPRESSIVE DISORDER, SINGLE EPISOD 03/19/2018 LISA LEVY APRN Ot F41.9 ANXIETY DISORDER, UNSPECIFIED 03/19/2018 LISA LEVY APRN Ot I10 ESSENTIAL (PRIMARY) HYPERTENSION 03/19/2018 LISA LEVY APRN Ot I25.2 OLD MYOCARDIAL INFARCTION 03/19/2018 LISA LEVY APRN Ot K21.9 GASTRO-ESOPHAGEAL REFLUX DISEASE WITHOUT 03/19/2018 LISA LEVY APRN Ot R05 COUGH 03/19/2018 LISA LEVY APRN Ot Z87.19 PERSONAL HISTORY OF OTHER DISEASES OF Procedures Code Description [place] [address] ROUTINE VENIPUNCTURE 12/28/2013 [id number] GFR CALC (RESULT ONLY) 12/28/2013 45125 CMP 12/28/2013 21380 LIPID PANEL 12/28/2013 63601 A1C (IN-HOUSE) 01/06/2014 Results Test Result Range [facility] - 12/17/17 13:24 GLUCOSE 508 mg/dL 65-99 UREA NITROGEN (BUN) 20 mg/dL 7-25 CREATININE 1.08 mg/dL 0.70-1.25 eGFR NON-AFR. SOMALI 74 mL/min/1.73m2 > OR=60 eGFR 86 mL/min/1.73m2 > OR=60 BUN/CREATININE RATIO NOT APPLICABLE (calc) 6-22 SODIUM 132 mmol/L 135-146 POTASSIUM 4.3 mmol/L 3.5-5.3 CHLORIDE 99 mmol/L 98-110 CARBON DIOXIDE 26 mmol/L 20-31 CALCIUM 9.1 mg/dL 8.6-10.3 PROTEIN, TOTAL 7.2 g/dL 6.1-8.1 ALBUMIN 4.4 g/dL 3.6-5.1 GLOBULIN 2.8 g/dL (calc) 1.9-3.7 ALBUMIN/GLOBULIN RATIO 1.6 (calc) 1.0-2.5 BILIRUBIN, TOTAL 0.5 mg/dL 0.2-1.2 ALKALINE PHOSPHATASE 144 U/L 40-115 AST 51 U/L 10-35 ALT 100 U/L 9-46 Complete blood count (CBC) with automated white blood cell (WBC) differential - 12/22/17 11:05 Blood leukocytes automated count (number/volume) 4.7 10*3/uL 4.3-11.0 Blood erythrocytes automated count (number/volume) 4.74 10*6/uL 4.35-5.85 Venous blood hemoglobin measurement (mass/volume) 15.2 g/dL 13.3-17.7 Blood hematocrit (volume fraction) 42 % 40-54 Automated erythrocyte mean corpuscular volume 88 [foz_us] 80-99 Automated erythrocyte mean corpuscular hemoglobin (mass per erythrocyte) 32 pg 25-34 Automated erythrocyte mean corpuscular hemoglobin concentration measurement ( mass/volume) 37 g/dL 32-36 Automated erythrocyte distribution width ratio 12.1 % 10.0-14.5 Automated blood platelet count (count/volume) 105 10*3/uL 130-400 Automated blood platelet mean volume measurement 12.5 [foz_us] 7.4-10.4 Automated blood neutrophils/100 leukocytes 70 % 42-75 Automated blood lymphocytes/100 leukocytes 13 % 12-44 Blood monocytes/100 leukocytes 12 % 0-12 Automated blood eosinophils/100 leukocytes 4 % 0-10 Automated blood basophils/100 leukocytes 1 % 0-10 Blood neutrophils automated count (number/volume) 3.3 10*3 1.8-7.8 Blood lymphocytes automated count (number/volume) 0.6 10*3 1.0-4.0 Blood monocytes automated count (number/volume) 0.6 10*3 0.0-1.0 Automated eosinophil count 0.2 10*3/uL 0.0-0.3 Automated blood basophil count (count/volume) 0.0 10*3/uL 0.0-0.1 Comprehensive metabolic panel - 12/22/17 11:05 Serum or plasma sodium measurement (moles/volume) 136 mmol/L 135-145 Serum or plasma potassium measurement (moles/volume) 4.1 mmol/L 3.6-5.0 Serum or plasma chloride measurement (moles/volume) 104 mmol/L 98-107 Carbon dioxide 25 mmol/L 21-32 Serum or plasma anion gap determination (moles/volume) 7 mmol/L 5-14 Serum or plasma urea nitrogen measurement (mass/volume) 12 mg/dL 7-18 Serum or plasma creatinine measurement (mass/volume) 1.07 mg/dL 0.60-1.30 Serum or plasma urea nitrogen/creatinine mass ratio 11 NRG Serum or plasma creatinine measurement with calculation of estimated glomerular filtration rate > NRG Serum or plasma glucose measurement (mass/volume) 266 mg/dL 70-105 Serum or plasma calcium measurement (mass/volume) 8.9 mg/dL 8.5-10.1 Serum or plasma total bilirubin measurement (mass/volume) 0.9 mg/dL 0.1-1.0 Serum or plasma alkaline phosphatase measurement (enzymatic activity/volume) 94 U/L 40-136 Serum or plasma aspartate aminotransferase measurement (enzymatic activity/ volume) 54 U/L 5-34 Serum or plasma alanine aminotransferase measurement (enzymatic activity/volume ) 107 U/L 0-55 Serum or plasma protein measurement (mass/volume) 6.9 g/dL 6.4-8.2 Serum or plasma albumin measurement (mass/volume) 4.0 g/dL 3.2-4.5 Encounters ACCT No. Visit Date/Time Discharge Status Pt. Type Provider Facility Loc./Unit Complaint [id number] 01/23/2014 13:13:00 01/23/2014 23:59:59 CLS Outpatient CALEB ROMAN MD [id number] 01/06/2014 12:11:00 01/06/2014 23:59:59 CLS Outpatient CALEB ROMAN MD [id number] 12/28/2013 12:39:00 12/28/2013 23:59:59 CLS Outpatient CALEB ROMAN MD [id number] 12/15/2013 16:45:00 12/15/2013 23:59:59 CLS Outpatient CALEB ROMAN MD [id number] 04/05/2013 15:03:00 04/05/2013 23:59:59 CLS Outpatient CALEB ROMAN MD [id number] 03/24/2013 13:13:00 Document Registration [id number] 11/18/2014 00:50:39 ACT Document Registration [id number] 03/16/2018 12:52:00 03/16/2018 23:59:59 CLS Outpatient PARKER SOTO APRN [facility] RAD ACUTE PAIN OF RT SHOULDER [id number] 01/26/2018 09:20:00 01/26/2018 11:00:00 DIS Emergency LISA LEVY APRN [facility] ER RT SHOULDER AND RIGHT RIB PAIN [id number] 12/22/2017 10:22:00 12/22/2017 12:27:00 DIS Outpatient LISA LEVY APRN [facility] ER HIGH BS [id number] 05/18/2017 12:02:00 05/18/2017 13:18:00 DIS Emergency LISA LEVY APRN [facility] ER LT ELBOW PAIN/BURNING [id number] 05/09/2017 19:50:00 05/09/2017 21:05:00 DIS Emergency GEOVANNA BAI MD [facility] ER L ELBOW PAIN [id number] 01/12/2017 14:22:00 01/12/2017 15:18:00 DIS Outpatient DEBORAH MUELLER MD [facility] ER HIGH BLOOD PRESSURE [id number] 04/04/2016 09:32:00 04/04/2016 12:39:00 DIS Emergency DEBORAH MUELLER MD [facility] ER RIGHT KNEE PAIN [id number] 11/06/2014 17:32:00 11/06/2014 19:19:00 DIS Emergency CHIDI CHAO DO [facility] ER R SIDE CRAMPING [id number] 01/06/2014 17:50:00 01/06/2014 19:17:00 DIS Emergency LISA LEVY APRN [facility] ER EAR ACHE [id number] 03/28/2013 09:37:00 03/28/2013 16:01:00 DIS Emergency NEVILLE GUPTA [facility] ER DIARRHEA [id number] 12/08/2014 04:45:00 Document Registration [id number] 11/06/2014 17:32:00 Document Registration [id number] 03/11/2011 10:17:00 Document Registration [id number] 02/12/2011 16:05:00 Document Registration [id number] 02/07/2011 18:08:00 Document Registration [id number] 02/06/2011 17:03:00 Document Registration [id number] 11/06/2010 19:21:00 Document Registration [id number] 08/08/2010 16:12:00 Document Registration [id number] 05/30/2010 23:50:00 Document Registration [id number] 05/15/2010 10:28:00 Document Registration [id number] 04/13/2010 17:24:00 Document Registration [id number] 04/09/2010 10:49:00 Document Registration [id number] 03/09/2010 23:20:00 Document Registration [id number] 03/05/2010 22:40:00 Document Registration 05/02/10 03/25/2018 08:36:52 03/25/2018 23:59:59 CLS Outpatient [id number] 03/10/2018 13:00:00 03/10/2018 23:59:59 CLS [facility] [id number] 12/17/2017 13:20:00 Document Registration
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
--- NOTE | 2018-05-03 10:57 | Diagnostic Imaging Report ---
Indication: Left hip pain. Three views were obtained. Findings: The alignment is normal. There is no fracture or dislocation. Soft tissues are unremarkable. Impression: No acute fracture or dislocation. Dictated by: Dictated on workstation # [id number]
[2018-05-03] MEDS ORDERED: TRAM50TA2 PO (11:15)
[2018-05-03 11:18] VITALS: BP 156/103
== END 2018-05-03 11:25 | disposition home or self-care (01) ==
LOC: EDUNIT# 08:49 → ER 08:52
DX: M70.72 Other bursitis of hip, left hip (principal); I25.2 Old myocardial infarction; I10 Essential (primary) hypertension; K21.9 Gastro-esophageal reflux disease without esophagitis; E11.9 Type 2 diabetes mellitus without complications; F41.9 Anxiety disorder, unspecified; F32.9 Major depressive disorder, single episode, unspecified; F17.290 Nicotine dependence, other tobacco product, uncomplicated; Z87.19 Personal history of other diseases of the digestive system; Z88.5 Allergy status to narcotic agent; Z79.84 Long term (current) use of oral hypoglycemic drugs

== ENCOUNTER 2018-10-12 12:24 | Emergency (ER) | payer SELFPAY ==
[~2018-10-12] VITALS: Ht 175.3 cm; Wt 81.6 kg
[~2018-10-12 12:24] MED LIST changes: +METF-397 PO; -METF500T5 PO
--- OUTSIDE RECORDS SUMMARY | 2018-10-12 12:29 | XMS REPORT ---
Author Author PARKER SOTO Organization [facility] Address [address] [place] [address] Care Team Providers Care Neurology Tech Name Role Phone PARKER SOTO Unavailable PROBLEMS Type Condition ICD9-CM Code UEF34-AL Code Onset Dates Condition Status SNOMED Code Problem Acute pain of right shoulder M25.511 Active 05231256 Problem Type 2 diabetes mellitus without complication, without long-term current use of insulin E11.9 Active 416421624 Problem Hypertension I10 Active 95686675 Problem Tear of right rotator cuff, unspecified tear extent M75.101 Active 046338153 ALLERGIES Substance Reaction Event Type Date Status Codeine-Guaifenesin hives Drug Allergy February, Active ENCOUNTERS Encounter Location Date Diagnosis [place] [id number] [place] [address]7533- 5352 Mar, [place] [id number] [place] [address]371- 9710 February, Acute pain of right shoulder M25.511 ; Hypertension I10 and Type 2 diabetes mellitus without complication, without long-term current use of insulin E11.9 [place] [address] [address] Dec, [facility] [id number] [place] [address] 09602- 7491 Dec, Type 2 diabetes mellitus without complication, without long- term current use of insulin E11.9 [facility] [id number] [place] [address] 05572- 6403 Dec, [place] [address] [address] 1628 Jun, Hypertension I10 [place] [address] [place] [id number] [place] [address]- 7534 18 Apr, 2016 [facility] [address] [place] [address] 4446 Oct, Hypertension I10 [facility] [address] [facility] [id number] [place] [address] 05 Oct, 2015 [facility] [address] [place] [address]- 3792 May, [facility] [address] [facility] [id number] [place] [address]- 2654 12 Mar, 2015 Allergic conjunctivitis 372.14 [facility] [id number] [place] [address], [place] 7916 14 Jan, 2015 [facility] [address] [place] [address]- 9759 Jan, [facility] [id number] [place] [address], [place] [address]- 1451 Dec, [facility] [address] [place] [address]- 9861 Dec, [facility] [id number] [place] [address]- 7459 Nov, [facility] [address] [place] [address]- 6771 Oct, [facility] [address] [place] [address]- 5384 14 Jan, 2014 [facility] [address] [place] [id number] 459[address] 14 Jan, 2014 [facility] [address] 1761 Dec, [facility] [address] [facility] [id number] [place] [address]- 9477 31 Dec, 2013 [facility] [address] 1475 Dec, [facility] [place] [facility] [address] [id number] [place] [address]- 7679 Dec, [facility] [place] [facility] [address] [id number] [place] [address]- 6979 Dec, [facility] [place] [facility] [address] [id number] [place] [address]- 8369 Dec, [facility] [place] [facility] [address] [id number] [place] [address]- 3330 Dec, [facility] [place] [facility] [address] [id number] [place] [address]- 9128 Dec, [facility] [place] [facility] [address] [id number] [place] [address]- 6426 Dec, [facility] [place] [facility] [address] [id number] [place] [address]- 5131 Dec, [facility] [place] [facility] [address] [id number] [place] [address]- 6125 Dec, [facility] [place] [facility] [address] [id number] [place] [address]- 1706 Oct, [facility] [place] [facility] [address] [id number] [place] [address]- 6748 Oct, [facility] [place] [facility] [address] [id number] [address]- 2887 Sep, [facility] [place] [facility] [address] [id number], [place] [address]- 2794 Mar, [facility] [place] [facility] [address] [id number] [place] [address]- 2532 24 Mar, 2013 [facility] [place] [facility] [address] [id number], [place] [address]- 3392 Mar, [facility] [place] [facility] [address] [id number] [place] [address]- 3937 Jan, [facility] [place] [facility] [address], [place] [address]- 8155 Jan, [facility] [address] [address]- 3488 Jan, [facility] [address], [place] [address]- 9801 Dec, [facility] [address], [place] [address]- 4083 Dec, [facility] [address], [place] [address]- 5919 Oct, [facility] [id number] [place] [address] 23940- 6062 Oct, [facility] [address], [place] [address]- 4219 Oct, [facility] [id number] [place] [address] 54684- 6170 Oct, [facility] [address], [place] [address]- 8195 Sep, [facility] [address], [place] [address]- 1945 Sep, [facility] [address], [place] [address]- 7917 Sep, IMMUNIZATIONS No Known Immunizations SOCIAL HISTORY Never Assessed REASON FOR VISIT Pain (acute) wants MRI-twoodenMA, patient voiced that he would like to switch medication to something other than metformin PLAN OF CARE Activity Details Follow Up with Dr. Silverman (PCP) Reason:DM and HTN VITAL SIGNS Height 70 in 2018-03-10 Weight 180 lbs 2018-03-10 Temperature 98.2 degrees Fahrenheit 2018-03-10 Heart Rate 90 bpm 2018-03-10 Respiratory Rate 18 2018-03-10 BMI 25.82 kg/m2 2018-03-10 Blood pressure systolic 158 mmHg 2018-03-10 Blood pressure diastolic 88 mmHg 2018-03-10 MEDICATIONS Medication Instructions Dosage Frequency Start Date End Date Duration Status GlipiZIDE 10 mg Orally Once a day 1 tablet 24h Dec, 30 day(s) Active Lisinopril-Hydrochlorothiazide 20-12.5 MG Orally Once a day 1 tablet 24h 30 Active MetFORMIN HCl ER 500 mg Orally twice a day 1 tablet with breakfast and 1 tablet with evening meal 12h February, 30 day(s) Active Lancet Device - as directed February, Active Glucocard 01 Blood Glucose w/Device as directed February, Active Glucocard Expression Test - subcutaneously 2 times a day as directed 12h February, 30 days Active RESULTS Name Result Date Reference Range MRI : Shoulder, Right 2018-03-16 PROCEDURES No Known procedures INSTRUCTIONS MEDICATIONS ADMINISTERED No Known Medications MEDICAL (GENERAL) HISTORY Type Description Date Medical History hypertension Medical History chronic pancreatitis Medical History irritable bowel syndrome Medical History depression Medical History bone spur - right hip Medical History borderline diabetic Surgical History back surgery - c-spine
--- OUTSIDE RECORDS SUMMARY | 2018-10-12 12:29 | XMS REPORT ---
Author Author CALEB ROMAN Organization [facility] Address [address] [place] [address] Care Team Providers Care Negotiations Director Name Role Phone CALEB ROMAN Unavailable PROBLEMS Type Condition ICD9-CM Code WGN51-SM Code Onset Dates Condition Status SNOMED Code Problem Acute pain of right shoulder M25.511 Active 07043307 Problem Type 2 diabetes mellitus without complication, without long-term current use of insulin E11.9 Active 262954459 Problem Hypertension I10 Active 40852927 Problem Tear of right rotator cuff, unspecified tear extent M75.101 Active 388168633 ALLERGIES No Information ENCOUNTERS Encounter Location Date Diagnosis [place] [address] [place] [id number] [place] [address] 01096- 0254 Mar, [place] [address] [place] [id number] [place] [address] 48697- 8375 February, Acute pain of right shoulder M25.511 ; Hypertension I10 and Type 2 diabetes mellitus without complication, without long-term current use of insulin E11.9 [place] [address] [place] [id number] [place] [address] 02857- 8190 Dec, [place] [address] [place] [id number] [place] [address] 35348- 4340 Dec, Type 2 diabetes mellitus without complication, without long- term current use of insulin E11.9 [place] [address] [place] [address] [id number] [place] [address] 24746- 1798 Dec, [place] [address] [place] [id number] [place] [address] 05351- 7584 Jun, Hypertension I10 [place] [address] [place] [id number] [place] [address] 11402- 4001 Apr, [place] [address] [id number] [place] [address]- 4005 Oct, Hypertension I10 [facility] [address] [facility] [id number] [place] [address]- 3234 05 Oct, 2015 [facility] [address] [facility] [id number] [place] [address]- 5284 May, [facility] [address] [facility] [id number] [place] [address]- 8589 Mar, Allergic conjunctivitis 372.14 [facility] [address] [id number] [place] [address]- 7501 14 Jan, 2015 [facility] [address] [facility] [id number] [place] [address]- 3323 13 Jan, 2015 [facility] [address] [address]- 0799 Dec, [facility] [address], [place] [address]- 1431 Dec, [facility] [address] [place] [id number] [address]- 4114 Nov, [facility] [address] [address]- 0556 Oct, [facility] [address] [facility] [id number], [place] [address]- 0476 14 Jan, 2014 [facility] [address] [facility] [id number], [place] [address]- 8132 14 Jan, 2014 [facility] [address] [facility] [id number] [place] [address]- 5701 31 Dec, 2013 [facility] [address] [facility] [id number] [place] [address]- 8852 31 Dec, 2013 [facility] [address] [facility] [id number] [place] [address]- 1786 28 Dec, 2013 [facility] [address] [id number] [place] [address]- 2599 28 Dec, 2013 [facility] [place] [facility] [address] [id number] [place] [address]- 2320 Dec, [facility] [place] [facility] [address] [id number] [place] [address]- 8526 Dec, [facility] [place] [facility] [address] [id number] [place] [address]- 5335 Dec, [facility] [place] [facility] [address] [id number] [place] [address]- 8267 Dec, [facility] [place] [facility] [address] [id number] [place] [address]- 7224 Dec, [facility] [place] [facility] [address] [id number] [place] [address]- 3012 Dec, [facility] [place] [facility] [address] [id number] [place] [address]- 7311 Dec, [facility] [place] [facility] [address] [id number] [place] [address]- 4443 Oct, [facility] [place] [facility] [address] [id number] [place] [address]- 1736 Oct, [facility] [place] [facility] [address] [id number] [place] [address]- 6279 Sep, [facility] [place] [facility] [address] [id number] [place] [address]- 7102 Mar, [facility] [place] [facility] [address] [id number] [place] [address]- 8711 Mar, [facility] [place] [facility] [address] [id number] [place] [address]- 0885 Mar, [facility] [place] [facility] [address] [id number] [place] [address]- 3238 Jan, [facility] [place] [facility] [address] [id number] [place] [address]- 8007 Jan, [facility] [address] [facility] [id number], [place] [address]- 7184 Jan, [facility] [address] [facility] [id number], [place] [address]- 7189 Dec, [facility] [address] [facility] [id number], [place] [address]- 4963 Dec, [facility] [address], [place] [address]- 9216 Oct, [facility] [address] [facility] [id number], [place] [address]- 1810 Oct, [facility] [address], [place] [address]- 7165 Oct, [facility] [address], [place] [address]- 5178 Oct, [facility] [address], [place] [address]- 8038 Sep, [facility] [address] [place] [id number], [place] [address]- 7915 Sep, [facility] [id number], [place] [address]- 7311 Sep, IMMUNIZATIONS No Known Immunizations SOCIAL HISTORY Never Assessed REASON FOR VISIT Requests return call PLAN OF CARE VITAL SIGNS MEDICATIONS Unknown Medications RESULTS No Results PROCEDURES No Known procedures INSTRUCTIONS MEDICATIONS ADMINISTERED No Known Medications MEDICAL (GENERAL) HISTORY Type Description Date Medical History hypertension Medical History chronic pancreatitis Medical History irritable bowel syndrome Medical History depression Medical History bone spur - right hip Medical History borderline diabetic Surgical History back surgery - c-spine
--- OUTSIDE RECORDS SUMMARY | 2018-10-12 12:29 | XMS REPORT ---
Author Author CALEB ROMAN Organization [facility] Address [address] [place] [address] Care Team Providers Care Carton Folder Name Role Phone CALEB ROMAN Unavailable PROBLEMS Type Condition ICD9-CM Code QPO71-YU Code Onset Dates Condition Status SNOMED Code Problem Acute pain of right shoulder M25.511 Active 53290855 Problem Type 2 diabetes mellitus without complication, without long-term current use of insulin E11.9 Active 054448676 Problem Hypertension I10 Active 45948712 Problem Tear of right rotator cuff, unspecified tear extent M75.101 Active 228324679 ALLERGIES No Information ENCOUNTERS Encounter Location Date Diagnosis [place] [address] [place] [address] [id number] [place] [address] 39116- 7313 Mar, [place] [address] [place] [id number] [place] [address] 07554- 6266 February, Acute pain of right shoulder M25.511 ; Hypertension I10 and Type 2 diabetes mellitus without complication, without long-term current use of insulin E11.9 [place] [address] [place] [address] [id number] [place] [address] 16270- 8597 Dec, [place] [address] [place] [address] [id number] [place] [address] 44680- 4131 Dec, Type 2 diabetes mellitus without complication, without long- term current use of insulin E11.9 [place] [address] [place] [id number] [place] [address] 47917- 7713 Dec, [place] [address] [place] [id number] [place] [address] 34935- 6917 Jun, Hypertension I10 [place] [address] [place] [id number] [place] [address] 76358- 9841 Apr, [place] [address] [id number] [place] [address]- 3820 Oct, Hypertension I10 [facility] [address] [facility] [id number] [place] [address]- 0243 05 Oct, 2015 [facility] [address] [facility] [id number] [place] [address]- 0296 May, [facility] [address] [facility] [id number] [place] [address]- 2938 Mar, Allergic conjunctivitis 372.14 [facility] [address] [id number] [place] [address]- 2245 14 Jan, 2015 [facility] [address] [facility] [id number] [place] [address]- 5445 13 Jan, 2015 [facility] [address] [place] [address]- 0295 Dec, [facility] [address] [address]- 0497 Dec, [facility] [address] [place] [address] [id number] [place] [address]- 5056 Nov, [facility] [address] [place] [address]- 6003 Oct, [facility] [address] [facility] [id number], [place] [address]- 7410 14 Jan, 2014 [facility] [address] [facility] [id number][place] [address]- 3601 14 Jan, 2014 [facility] [address] [facility] [id number] [place] [address]- 2769 31 Dec, 2013 [facility] [address] [facility] [id number] [place] [address]- 8588 31 Dec, 2013 [facility] [address] [facility] [id number] [place] [address]- 4162 28 Dec, 2013 [facility] [address] [id number] [place] [address]- 6399 28 Dec, 2013 [facility] [place] [facility] [address] [id number] [place] [address]- 8326 Dec, [facility] [place] [facility] [address] [id number] [place] [address]- 2476 Dec, [facility] [place] [facility] [address] [id number] [place] [address]- 9511 Dec, [facility] [place] [facility] [address] [id number] [place] [address]- 4849 Dec, [facility] [place] [facility] [address] [id number] [place] [address]- 8194 Dec, [facility] [place] [facility] [address] [id number] [place] [address]- 7560 Dec, [facility] [place] [facility] [address] [id number] [place] [address]- 2332 Dec, [facility] [place] [facility] [address] [id number] [place] [address]- 8946 Oct, [facility] [place] [facility] [address] [id number] [place] [address]- 4056 Oct, [facility] [place] [facility] [address] [id number] [place] [address]- 1142 Sep, [facility] [place] [facility] [address] [id number] [place] [address]- 6415 Mar, [facility] [place] [facility] [address] [id number] [place] [address]- 7791 Mar, [facility] [place] [facility] [address] [id number] [place] [address]- 2828 Mar, [facility] [place] [facility] [address] [id number] [place] [address]- 2105 Jan, [facility] [place] [facility] [address] [id number] [place] [address]- 9345 Jan, [facility] [address] [facility] [id number], [place] [address]- 5851 Jan, [facility] [address] [facility] [id number], [place] [address]- 9014 Dec, [facility] [address] [facility] [id number], [place] [address]- 4217 Dec, [facility] [address] [address]- 7218 Oct, [facility] [address] [facility] [id number][place] [address]- 7433 Oct, [facility] [address] [address]- 0497 Oct, [facility] [address] [address]- 4117 Oct, [facility] [address], [place] [address]- 0877 Sep, [facility] [address] [id number] [address]- 4773 Sep, [facility] [address] [id number] [address]- 4660 Sep, IMMUNIZATIONS No Known Immunizations SOCIAL HISTORY [...]
--- OUTSIDE RECORDS SUMMARY | 2018-10-12 12:32 | XMS REPORT | Continuity of Care Document ---
Author Author [facility] Address Unknown Phone Unavailable Allergies Active Description Code Type Severity Reaction Onset Reported/Identified Relationship to Patient Clinical Status Yes codeine [id number] Drug Allergy Unknown RASH 05/31/2010 Yes codeine [...] Ot 388.70 OTALGIA NOS 01/06/2014 LISA LEVY TRAUMA COORDINATOR Ot 465.9 ACUTE URI NOS 01/06/2014 LISA LEVY TRAUMA COORDINATOR Ot 490 BRONCHITIS NOS 01/23/2014 CALEB ROMAN [...] Ot I10 ESSENTIAL (PRIMARY) HYPERTENSION 05/09/2017 GEOVANNA ABI MD Ot I25.2 OLD MYOCARDIAL INFARCTION 05/09/2017 GEOVANNA BAI MD Ot K21.9 GASTRO-ESOPHAGEAL REFLUX DISEASE WITHOUT 05/09/2017 GEOVANNA BAI MD Ot M19.90 UNSPECIFIED OSTEOARTHRITIS, UNSPECIFIED 05/09/2017 GEOVANNA ABI MD Ot M25.522 PAIN IN LEFT ELBOW 05/09/2017 GEOVANNA BAI MD Ot M70.22 OLECRANON BURSITIS, LEFT ELBOW 05/09/2017 GEOVANNA BAI MD Ot S59.902A UNSPECIFIED INJURY OF LEFT ELBOW, INITIA 05/09/2017 GEOVANNA BAI MD Ot W22.09XA STRIKING AGAINST OTHER STATIONARY OBJECT 05/09/2017 BHUMIKA CLIFFORD, GEOVANNA Deborah Ot Z98.1 ARTHRODESIS STATUS 05/18/2017 LISA LEVY TRAUMA COORDINATOR Ot E11.9 TYPE 2 DIABETES MELLITUS WITHOUT COMPLIC 05/18/2017 LISA LEVY TRAUMA COORDINATOR Ot F32.9 MAJOR DEPRESSIVE DISORDER, SINGLE EPISOD 05/18/2017 LISA LEVY TRAUMA COORDINATOR Ot F41.9 ANXIETY DISORDER, UNSPECIFIED 05/18/2017 LISA LEVY TRAUMA COORDINATOR Ot I10 ESSENTIAL (PRIMARY) HYPERTENSION 05/18/2017 LISA LEVY TRAUMA COORDINATOR Ot I25.2 OLD MYOCARDIAL INFARCTION 05/18/2017 LISA LEVY TRAUMA COORDINATOR Ot K21.9 GASTRO-ESOPHAGEAL REFLUX DISEASE WITHOUT 05/18/2017 LISA LEVY TRAUMA COORDINATOR Ot L03.114 CELLULITIS OF LEFT UPPER LIMB 05/18/2017 LISA LEVY APRN Ot M19.90 UNSPECIFIED OSTEOARTHRITIS, UNSPECIFIED 05/18/2017 LISA LEVY APRN Ot M25.522 PAIN IN LEFT ELBOW 12/22/2017 LISA LEVY APRN Ot B34.9 VIRAL INFECTION, UNSPECIFIED 12/22/2017 LISA LEVY TRAUMA COORDINATOR Ot E11.9 TYPE 2 DIABETES MELLITUS WITHOUT COMPLIC 12/22/2017 LISA LEVY TRAUMA COORDINATOR Ot F17.290 NICOTINE DEPENDENCE, OTHER TOBACCO PRODU 12/22/2017 LISA LEVY TRAUMA COORDINATOR Ot F32.9 MAJOR DEPRESSIVE DISORDER, SINGLE EPISOD 12/22/2017 LISA LEVY TRAUMA COORDINATOR Ot F41.9 ANXIETY DISORDER, UNSPECIFIED 12/22/2017 LISA LEVY APRN Ot I10 ESSENTIAL (PRIMARY) HYPERTENSION 12/22/2017 LISA LEVY TRAUMA COORDINATOR Ot I25.2 OLD MYOCARDIAL INFARCTION 12/22/2017 LISA LEVY TRAUMA COORDINATOR Ot K21.9 GASTRO-ESOPHAGEAL REFLUX DISEASE WITHOUT 12/22/2017 LISA LEVY APRN Ot R05 COUGH 12/22/2017 LISA LEVY APRN Ot Z87.19 PERSONAL HISTORY OF OTHER DISEASES OF TH 12/24/2017 LISA LEVY TRAUMA COORDINATOR Ot B34.9 VIRAL INFECTION, UNSPECIFIED 12/24/2017 LISA LEVY TRAUMA COORDINATOR Ot E11.9 TYPE 2 DIABETES MELLITUS WITHOUT [...] STRIKE 01/26/2018 LISA LEVY APRN Ot Z79.84 PENITENTIARY (CURRENT) USE OF ORAL HYPOGLYC 01/26/2018 LISA [...] STRIKE 01/28/2018 LISA LEVY APRN Ot Z79.84 PENITENTIARY (CURRENT) USE OF ORAL HYPOGLYC 01/28/2018 LISA [...] STRIKE 02/01/2018 LISA LEVY APRN Ot 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 02/01/2018 LISA [...] Z87.19 PERSONAL HISTORY OF OTHER DISEASES OF 05/05/2018 KULWINDER POMPA MD Ot E11.9 TYPE 2 DIABETES MELLITUS WITHOUT COMPLIC 05/05/2018 KULWINDER POMPA MD Ot F17.290 NICOTINE DEPENDENCE, OTHER TOBACCO PRODU 05/05/2018 KULWINDER POMPA MD Ot F32.9 MAJOR DEPRESSIVE DISORDER, SINGLE EPISOD 05/05/2018 KULWINDER POMPA MD, Ot F41.9 ANXIETY DISORDER, UNSPECIFIED 05/05/2018 KULWINDER POMPA MD Ot I10 ESSENTIAL (PRIMARY) HYPERTENSION 05/05/2018 KULWINDER POMPA MD, Ot I25.2 OLD MYOCARDIAL INFARCTION 05/05/2018 KULWINDER POMPA MD, Ot K21.9 GASTRO-ESOPHAGEAL REFLUX DISEASE WITHOUT 05/05/2018 KULWINDER POMPA MD, Ot M25.552 PAIN IN LEFT HIP 05/05/2018 KULWINDER POMPA MD, Ot M70.72 OTHER BURSITIS OF HIP, LEFT HIP 05/05/2018 KULWINDER POMPA MD, Ot Z79.84 PENITENTIARY (CURRENT) USE OF ORAL HYPOGLYC 05/05/2018 KULWINDER POMPA MD, Ot Z87.19 PERSONAL HISTORY OF OTHER DISEASES OF 05/05/2018 KULWINDER POMPA MD, Ot Z88.5 ALLERGY STATUS TO NARCOTIC AGENT STATUS Procedures Code [place] [address] ROUTINE VENIPUNCTURE 12/28/20130809424 GFR CALC (RESULT ONLY) 12/28/2013 24202 CMP 12/28/2013 49176 LIPID PANEL 12/28/2013 71239 A1C (IN-HOUSE) 01/06/2014 Results Test Result Range [facility] - 12/17/17 13:24 GLUCOSE 508 mg/dL 65-99 UREA NITROGEN (BUN) 20 mg/dL 7-25 CREATININE 1.08 mg/dL 0.70-1.25 eGFR NON-AFR. [place] 74 mL/min/1.73m2 > OR=60 eGFR 86 mL/min/1.73m2 [...] Status Pt. Type Provider Facility Loc./Unit Complaint [id number] 01/23/2014 13:13:00 01/23/2014 23:59:59 [facility] Outpatient CALEB ROMAN MD [id number] 01/06/2014 12:11:00 01/06/2014 23:59:59 [facility] Outpatient CALEB ROMAN MD [id number] 12/28/2013 12:39:00 12/28/2013 23:59:59 [facility] Outpatient CALEB ROMAN MD [id number] 12/15/2013 16:45:00 12/15/2013 23:59:59 CLS Outpatient CALEB ROMAN MD [id number] 04/05/2013 15:03:00 04/05/2013 23:59:59 [facility] Outpatient CALEB ROMAN MD [id number] 03/24/2013 13:13:00 Document Registration [id number] 11/18/2014 00:50:39 ACT Document Registration [id number] 05/03/2018 08:52:00 05/03/2018 11:25:00 DIS Outpatient KULWINDER POMPA MD [facility] ER LEFT HIP/LEG PAIN [id number] 03/16/2018 12:52:00 03/16/2018 23:59:59 CLS Outpatient PARKER SOTO APRN [facility] RAD ACUTE PAIN OF RT SHOULDER [id number] 01/26/2018 09:20:00 01/26/2018 11:00:00 DIS Emergency LISA LEVY APRN [facility] ER RT SHOULDER AND RIGHT RIB PAIN [id number] 12/22/2017 10:22:00 12/22/2017 12:27:00 DIS Outpatient LISA LEVY APRN [facility] ER HIGH BS [id number] 05/18/2017 12:02:00 05/18/2017 13:18:00 DIS Emergency LISA LEVY APRN [facility] ER LT ELBOW PAIN/BURNING [id number] 05/09/2017 19:50:00 05/09/2017 21:05:00 DIS Emergency GEOVANNA BAI MD [facility] ER L ELBOW PAIN [id number] 01/12/2017 14:22:00 01/12/2017 15:18:00 DIS Outpatient DEBORAH MUELLER MD [facility] ER HIGH BLOOD PRESSURE [id number] 04/04/2016 09:32:00 04/04/2016 12:39:00 DIS Emergency DEBORAH MUELLER MD [facility] ER RIGHT KNEE PAIN [id number] 11/06/2014 17:32:00 11/06/2014 19:19:00 DIS Emergency CHIDI CHAO DO [facility] ER R SIDE CRAMPING [id number] 01/06/2014 17:50:00 01/06/2014 19:17:00 DIS Emergency LISA LEVY APRN [facility] ER EAR ACHE [id number] 03/28/2013 09:37:00 03/28/2013 16:01:00 DIS Emergency NEVILLE GUPTA [facility] ER DIARRHEA [id number] 12/08/2014 04:45:00 Document Registration [id number] 11/06/2014 17:32:00 Document Registration [id number] 03/11/2011 10:17:00 Document Registration [id number] 02/12/2011 16:05:00 Document Registration [id number] 02/07/2011 18:08:00 Document Registration [id number] 02/06/2011 17:03:00 Document Registration [id number] 11/06/2010 19:21:00 Document Registration [id number] 08/08/2010 16:12:00 Document Registration [id number] 05/30/2010 23:50:00 Document Registration [id number] 05/15/2010 10:28:00 Document Registration [id number] 04/13/2010 17:24:00 Document Registration [id number] 04/09/2010 10:49:00 Document Registration [id number] 03/09/2010 23:20:00 Document Registration [id number] 03/05/2010 22:40:00 Document Registration 05/02/10 03/25/2018 08:36:52 03/25/2018 23:59:59 CLS Outpatient [id number] 03/10/2018 13:00:00 03/10/2018 23:59:59 CLS Out[facility]ESSIE [facility]IFFORD[facility] [id number] 12/17/2017 13:20:00 Document Registration
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
[2018-10-12] MEDS ORDERED: ORPHENADRINE 60 MG/2 ML (NORFLEX) AMP IM STA (12:54)
[2018-10-12] MEDS ORDERED: KETOROLAC 60 MG/2 ML VIAL IM STA (12:54)
[2018-10-12] MEDS ORDERED: lisINopril 20 MG (PRINIVIL) TABLET PO ONE (13:00)
[2018-10-12] MEDS ORDERED: metFORMIN 500 MG (GLUCOPHAGE) TAB PO ONE (13:00)
[2018-10-12] MEDS ORDERED: HYDROCHLOROTHIAZIDE 12.5 MG (HCTZ) CAP PO ONE (13:00)
[2018-10-12] MEDS ORDERED: CYCL10TA9 PO (13:03)
[2018-10-12] MEDS ORDERED: NAPR-1071 PO (13:03)
[2018-10-12] MEDS ORDERED: METF-397 PO (13:04)
[2018-10-12] MEDS ORDERED: LISI1TAB8 PO (13:04)
[2018-10-12] MEDS ORDERED: HYDROcodone/APAP 10 MG/325 MG (LORTAB) TAB PO STA (13:30)
[2018-10-12 13:35] VITALS: BP 180/127
== END 2018-10-12 13:35 | disposition home or self-care (01) ==
LOC: EDUNIT# 12:24 → ER 12:25
DX: M43.6 Torticollis (principal); I10 Essential (primary) hypertension; E11.9 Type 2 diabetes mellitus without complications; F41.9 Anxiety disorder, unspecified; I25.2 Old myocardial infarction; F32.9 Major depressive disorder, single episode, unspecified; K21.9 Gastro-esophageal reflux disease without esophagitis; F17.290 Nicotine dependence, other tobacco product, uncomplicated; Z88.5 Allergy status to narcotic agent; Z87.19 Personal history of other diseases of the digestive system; Z79.84 Long term (current) use of oral hypoglycemic drugs; Z91.14 Patient's other noncompliance with medication regimen
CPT/HCPCS: 99284

== ENCOUNTER 2018-10-14 06:44 | Emergency (ER) | payer SELFPAY, OTHER | END 2018-10-14 08:37 | disposition home or self-care (01) | LOC: ER 06:44 ==

== ENCOUNTER 2019-08-01 11:22 | Emergency (ER) | payer SELFPAY ==
[~2019-08-01 11:22] MED LIST changes: +CYCL10TA9 PO; +LISI1TAB8 PO; +NAPR-1071 PO
== END 2019-08-01 12:11 | disposition left against medical advice (07) ==
LOC: EDUNIT# 11:22 → ER 11:23
DX: T14.8XXA Other injury of unspecified body region, initial encounter (principal); W55.03XA Scratched by cat, initial encounter

== ENCOUNTER 2019-08-28 00:31 | Emergency (ER) | payer SELFPAY ==
[~2019-08-28] VITALS: Ht 175 cm; Wt 81.0 kg
[2019-08-28 00:57] LABS: BILIRUBIN,URINE NEGATIVE (NEGATIVE); CLARITY,URINE CLEAR; COLOR,URINE YELLOW; GLUCOSE, URINE (UA) 3+ (NEGATIVE); KETONES,URINE NEGATIVE (NEGATIVE); LEUKOCYTE ESTERASE ,URINE NEGATIVE (NEGATIVE); NITRITE,URINE NEGATIVE (NEGATIVE); PROTEIN,URINE NEGATIVE (NEGATIVE)
[2019-08-28 01:00] LABS: BASOPHILS # (AUTO) 0.1 10^3/uL (0.0-0.1); BASOPHILS % (AUTO) 1 % (0-10); EOSINOPHILS # (AUTO) 0.8 10^3/uL (0.0-0.3); EOSINOPHILS % (AUTO) 9 % (0-10); HEMATOCRIT 42 % (40-54); HEMOGLOBIN 15.1 G/DL (13.3-17.7); LYMPHOCYTES # (AUTO) 2.7 X 10^3 (1.0-4.0); LYMPHOCYTES % (AUTO) 31 % (12-44); MEAN CORPUSCULAR HEMOGLOBIN 32 PG (25-34); MEAN CORPUSCULAR HGB CONC 36 G/DL (32-36); MEAN CORPUSCULAR VOLUME 88 FL (80-99); MEAN PLATELET VOLUME 11.8 FL (7.4-10.4); MONOCYTES # (AUTO) 0.9 X 10^3 (0.0-1.0); MONOCYTES % (AUTO) 10 % (0-12); NEUTROPHILS # (AUTO) 4.2 X 10^3 (1.8-7.8); NEUTROPHILS % (AUTO) 49 % (42-75); PLATELET COUNT 173 10^3/uL (130-400); RED CELL DISTRIBUTION WIDTH 12.5 % (10.0-14.5); WHITE BLOOD COUNT 8.6 10^3/uL (4.3-11.0)
[2019-08-28] MEDS ORDERED: NS IV 1000 ML 1,000 ML IV ONE (01:02)
[2019-08-28 01:13] LABS: BACTERIA,URINE NEGATIVE /HPF; SQUAMOUS EPITHELIAL CELL,UR RARE /HPF
[2019-08-28 01:15] LABS: ALANINE AMINOTRANSFERASE 50 U/L (0-55); ALKALINE PHOSPHATASE 165 U/L (40-136); BILIRUBIN,TOTAL 0.5 MG/DL (0.1-1.0); BUN/CREATININE RATIO 11; CALCIUM 8.7 MG/DL (8.5-10.1); CARBON DIOXIDE 18 MMOL/L (21-32); CHLORIDE 102 MMOL/L (98-107); CREATININE SERUM 1.16 MG/DL (0.60-1.30); GFR ESTIMATED > 60; GLUCOSE 208 MG/DL (70-105); MAGNESIUM 1.8 MG/DL (1.6-2.4); POTASSIUM 3.7 MMOL/L (3.6-5.0); SODIUM 134 MMOL/L (135-145); TOTAL PROTEIN 7.3 GM/DL (6.4-8.2)
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
[2019-08-28 01:45] VITALS: BP 125/90
== END 2019-08-28 01:45 | disposition home or self-care (01) ==
LOC: EDUNIT# 00:31 → ER 00:33
DX: R25.2 Cramp and spasm (principal); E11.65 Type 2 diabetes mellitus with hyperglycemia; I10 Essential (primary) hypertension; F41.9 Anxiety disorder, unspecified; F32.9 Major depressive disorder, single episode, unspecified; I25.2 Old myocardial infarction; K21.9 Gastro-esophageal reflux disease without esophagitis; K58.9 Irritable bowel syndrome, unspecified; F17.290 Nicotine dependence, other tobacco product, uncomplicated; Z87.820 Personal history of traumatic brain injury; Z88.5 Allergy status to narcotic agent; Z79.84 Long term (current) use of oral hypoglycemic drugs
CPT/HCPCS: 36415; 80053; 81000; 82962; 83735; 85025; 86141

== ENCOUNTER 2019-10-26 00:15 | Emergency (ER) | payer SELFPAY ==
[~2019-10-26] VITALS: Ht 175 cm; Wt 81.8 kg
[~2019-10-26 00:15] MED LIST changes: +LISI1TAB25; +LISI1TAB25 PO; -LISI1TAB8; -LISI1TAB8 PO; -TRAM50TA2 PO
[2019-10-26] MEDS ORDERED: INSU100V5 SQ (00:45)
[2019-10-26] MEDS ORDERED: INSU100V16 SQ (00:45)
[2019-10-26] MEDS ORDERED: ESCI5TAB PO (00:45)
[2019-10-26] MEDS ORDERED: ATOR10TA PO (00:45)
[2019-10-26] MEDS ORDERED: NS IV 1000 ML 1,000 ML IV SCH (01:04)
[2019-10-26 01:25] LABS: BILIRUBIN,URINE NEGATIVE (NEGATIVE); CLARITY,URINE CLEAR; COLOR,URINE YELLOW; GLUCOSE, URINE (UA) 3+ (NEGATIVE); KETONES,URINE NEGATIVE (NEGATIVE); LEUKOCYTE ESTERASE ,URINE NEGATIVE (NEGATIVE); NITRITE,URINE NEGATIVE (NEGATIVE); PH,URINE 6.5 (5-9); PROTEIN,URINE NEGATIVE (NEGATIVE)
[2019-10-26 01:26] LABS: BASOPHILS % (AUTO) 1 % (0-10); EOSINOPHILS # (AUTO) 0.5 10^3/uL (0.0-0.3); EOSINOPHILS % (AUTO) 9 % (0-10); HEMATOCRIT 39 % (40-54); LYMPHOCYTES # (AUTO) 1.8 X 10^3 (1.0-4.0); LYMPHOCYTES % (AUTO) 29 % (12-44); MEAN CORPUSCULAR HEMOGLOBIN 31 PG (25-34); MEAN CORPUSCULAR HGB CONC 36 G/DL (32-36); MEAN CORPUSCULAR VOLUME 87 FL (80-99); MEAN PLATELET VOLUME 11.2 FL (7.4-10.4); MONOCYTES # (AUTO) 0.7 X 10^3 (0.0-1.0); MONOCYTES % (AUTO) 11 % (0-12); NEUTROPHILS # (AUTO) 3.1 X 10^3 (1.8-7.8); NEUTROPHILS % (AUTO) 51 % (42-75); PLATELET COUNT 134 10^3/uL (130-400); RED CELL DISTRIBUTION WIDTH 12.2 % (10.0-14.5); WHITE BLOOD COUNT 6.2 10^3/uL (4.3-11.0)
[2019-10-26 01:36] LABS: BACTERIA,URINE NEGATIVE /HPF; SQUAMOUS EPITHELIAL CELL,UR 0-2 /HPF
[2019-10-26 01:42] LABS: BUN/CREATININE RATIO 14; CALCIUM 8.6 MG/DL (8.5-10.1); CARBON DIOXIDE 22 MMOL/L (21-32); CHLORIDE 104 MMOL/L (98-107); CREATININE SERUM 1.13 MG/DL (0.60-1.30); GFR ESTIMATED > 60; GLUCOSE 277 MG/DL (70-105); SODIUM 138 MMOL/L (135-145)
--- NOTE | 2019-10-26 02:12 | ED General ---
General Chief Complaint: General Problems/Pain Stated Complaint: URINE IS DARK Nursing Triage Note: REPORTS BEING OUT OF GLUCOSE TEST STRIPS SINCE 10/20/18. REPORTS ORANGE URINE TODAY. Nursing Sepsis Screen: No Definite Risk Source of Information: Patient Exam Limitations: No Limitations History of Present Illness Date Seen by Provider: Oct 26, 2019 Time Seen by Provider: 01:04 Initial Comments This 64-year-old gentleman presents to the emergency room with complaints of dark urine. He states he discontinued insulin a couple days ago when he ran out of glucometer strips. He gets concerned about becoming hypoglycemic if he cannot check his blood sugars so he just does not take his insulin. Allergies and Home Medications Allergies Coded Allergies: codeine (Verified Allergy, Unknown, RASH, 05/31/10) Home Medications Atorvastatin Calcium 10 Mg Tablet, Unknown Dose PO HS, (Reported) Insulin Aspart 100 Unit/1 Ml Susp, Unknown Dose SQ AC, (Reported) Insulin Determir 1,000 Units/10 Ml Soln, Unknown Dose SQ HS, (Reported) Patient Home Medication List Home Medication List Reviewed: Yes Review of Systems Review of Systems Constitutional: no symptoms reported EENTM: no symptoms reported Respiratory: no symptoms reported Cardiovascular: no symptoms reported Gastrointestinal: no symptoms reported Genitourinary: see HPI Musculoskeletal: no symptoms reported Skin: no symptoms reported Psychiatric/Neurological: No Symptoms Reported Hematologic/Lymphatic: No Symptoms Reported Immunological/Allergic: no symptoms reported Past Drqhogg-Vnqhtj-Llbblg Hx Patient Social History Alcohol Use: Denies Use Recreational Drug Use: No Smoking Status: Current Everyday Smoker Type Used: Electronic/Vapor 2nd Hand Smoke Exposure: No Recent Foreign Travel: No Contact w/Someone Who Travel: No Recent Infectious Disease Expo: No Recent Hopitalizations: No Physical Abuse: No Sexual Abuse: No Mistreated: No Fear: No Immunizations Up To Date Tetanus Booster (TDap): Unknown Seasonal Allergies Seasonal Allergies: No Past Medical History Surgeries: Yes (neck surgery with hardware) Cardiac, Orthopedic Respiratory: No Cardiac: Yes Heart Attack, High Cholesterol, Hypertension Neurological: No Reproductive Disorders: No Genitourinary: No Gastrointestinal: Yes Gastroesophageal Reflux, Pancreatitis, Irritable Bowel Musculoskeletal: Yes Arthritis Endocrine: Yes Diabetes, Insulin dep HEENT: No Cancer: No Psychosocial: Yes Anxiety, Depression Integumentary: No Blood Disorders: No Family Medical History No Pertinent Family Hx, Diabetes Physical Exam Vital Signs Vital Signs - First Documented 10/26/19 00:37 Temp 36.6 Pulse 81 Resp 16 B/P (MAP) 132/79 (96) Pulse Ox 97 O2 Delivery Room Air Capillary Refill : Less Than 3 Seconds Height, Weight, BMI Height: 5'9.00" Weight: 180lbs. 8.0oz. [id number]; 26.00 BMI Method:Stated General Appearance: No Apparent Distress, WD/WN HEENT: PERRL/EOMI, Normal ENT Inspection Neck: Normal Inspection Respiratory: Lungs Clear, Normal Breath Sounds, No Accessory Muscle Use, No Respiratory Distress Cardiovascular: Regular Rate, Rhythm, No Edema, No Murmur Gastrointestinal: Normal Bowel Sounds, Non Tender, Soft Extremity: Normal Inspection, No Pedal Edema Neurologic/Psychiatric: Alert, Oriented x3, No Motor/Sensory Deficits, Normal Mood/Affect, it support consultant II-XII Norm as Tested Skin: Normal Color, Warm/Dry Progress/Results/Core Measures Suspected Sepsis Recent Fever Within 48 Hours: No Infection Criteria Present: None New/Unexplained Altered Menta: No Sepsis Screen: No Definite Risk SIRS Temperature: Pulse: 81 Respiratory Rate: 16 Laboratory Tests 10/26/19 01:14: White Blood Count 6.2 Blood Pressure 132 /79 Mean: 96 Laboratory Tests 10/26/19 01:14: Creatinine 1.13, Platelet Count 134 Results/Orders Lab Results Laboratory Tests Test 10/26/19 00:40 10/26/19 01:14 10/26/19 01:20 Range/Units Urine Color YELLOW Urine Clarity CLEAR Urine pH 6.5 5-9 Urine Specific [place] 1.020 1.016-1.022 Urine Protein NEGATIVE NEGATIVE Urine Glucose (UA) 3+ H NEGATIVE Urine Ketones NEGATIVE NEGATIVE Urine Nitrite NEGATIVE NEGATIVE Urine Bilirubin NEGATIVE NEGATIVE Urine Urobilinogen 4.0 < = 1.0 MG/DL Urine Leukocyte Esterase NEGATIVE NEGATIVE Urine RBC (Auto) NEGATIVE NEGATIVE Urine RBC NONE /HPF Urine WBC NONE /HPF Urine Squamous Epithelial Cells 0-2 /HPF Urine Crystals NONE /LPF Urine Bacteria NEGATIVE /HPF Urine Casts NONE /LPF Urine Mucus SMALL H /LPF Urine Culture Indicated NO White Blood Count 6.2 4.3-11.0 10^3/uL Red Blood Count 4.51 4.35-5.85 10^6/uL Hemoglobin 14.0 13.3-17.7 G/DL Hematocrit 39 L 40-54 % Mean Corpuscular Volume 87 80-99 FL Mean Corpuscular Hemoglobin 31 25-34 PG Mean Corpuscular Hemoglobin Concent 36 32-36 G/DL Red Cell Distribution Width 12.2 10.0-14.5 % Platelet Count 134 130-400 10^3/uL Mean Platelet Volume 11.2 H 7.4-10.4 FL Neutrophils (%) (Auto) 51 42-75 % Lymphocytes (%) (Auto) 29 12-44 % Monocytes (%) (Auto) 11 0-12 % Eosinophils (%) (Auto) 9 0-10 % Basophils (%) (Auto) 1 0-10 % Neutrophils # (Auto) 3.1 1.8-7.8 X 10^3 Lymphocytes # (Auto) 1.8 1.0-4.0 X 10^3 Monocytes # (Auto) 0.7 0.0-1.0 X 10^3 Eosinophils # (Auto) 0.5 H 0.0-0.3 10^3/uL Basophils # (Auto) 0.0 0.0-0.1 10^3/uL Sodium Level 138 135-145 MMOL/L Potassium Level 4.0 3.6-5.0 MMOL/L Chloride Level 104 98-107 MMOL/L Carbon Dioxide Level 22 21-32 MMOL/L Anion Gap 12 5-14 MMOL/L Blood Urea Nitrogen 16 7-18 MG/DL Creatinine 1.13 0.60-1.30 MG/DL Estimat Glomerular Filtration Rate > 60 BUN/Creatinine Ratio 14 Glucose Level 277 H 70-105 MG/DL Calcium Level 8.6 8.5-10.1 MG/DL Magnesium Level 2.0 1.6-2.4 MG/DL Glucometer 271 H 70-110 MG/DL My Orders Orders - GEOVANNA BAI MD Basic Metabolic Panel (10/26/19 01:04) Cbc With Automated Diff (10/26/19 01:04) Magnesium (10/26/19 01:04) Ua Culture If Indicated (10/26/19 01:04) Ed Iv/Invasive Line Start (10/26/19 01:04) Ns Iv 1000 Ml (Sodium Chloride 0.9%) (10/26/19 01:04) Accucheck Stat ONCE (10/26/19 01:04) Vital Signs/I&O 10/26/19 10/26/19 00:37 02:14 Temp 36.6 36.5 Pulse 81 76 Resp 16 16 B/P (MAP) 132/79 (96) 123/76 (96) Pulse Ox 97 99 O2 Delivery Room Air Room Air Capillary Refill : Less Than 3 Seconds Blood Pressure Mean: 96 Point of Care Testing Finger Stick Blood Glucose: 271 Progress Note : Progress Note Patient received a liter of IV fluid. Labs were unremarkable except for mild hyperglycemia. Patient was encouraged to resume his insulin and obtain a glucometer strips as soon as possible. Departure Impression Primary Impression: Hyperglycemia Disposition: HOME, SELF-CARE Condition: Improved Departure-Patient Inst. Decision time for Depature: 02:10 Referrals: CALEB ROMAN MD (PCP/Family) Primary Care Physician Patient Instructions: Hyperglycemia, Adult Add. Discharge Instructions: Drink plenty of clear liquids. You may resume your usual doses of insulin. Please start checking your blood sugars tomorrow as previously instructed by your inclusion paraeducator. Return to care if you have worsening symptoms. All discharge instructions reviewed with patient and/or family. Voiced understanding. Copy Copies To 1: SONIA JACOBSEN JOSHUA T MD Oct 26, 2019 02:12
[2019-10-26 02:14] VITALS: BP 123/76
== END 2019-10-26 02:14 | disposition home or self-care (01) ==
LOC: EDUNIT# 00:15 → ER 00:17
DX: E11.65 Type 2 diabetes mellitus with hyperglycemia (principal); I10 Essential (primary) hypertension; I25.2 Old myocardial infarction; E78.00 Pure hypercholesterolemia, unspecified; K21.9 Gastro-esophageal reflux disease without esophagitis; K58.9 Irritable bowel syndrome, unspecified; F41.9 Anxiety disorder, unspecified; F32.9 Major depressive disorder, single episode, unspecified; F17.290 Nicotine dependence, other tobacco product, uncomplicated; Z88.5 Allergy status to narcotic agent; Z79.4 Long term (current) use of insulin
CPT/HCPCS: 36415; 80048; 81000; 82962; 83735; 85025; 96360

== ENCOUNTER 2021-06-07 03:36 | Emergency (ER) | payer SELFPAY ==
[~2021-06-07] VITALS: Ht 177 cm; Wt 81.8 kg
[~2021-06-07 03:36] MED LIST changes: +ATOR10TA PO; +INSU100V16 SQ; +INSU100V5 SQ; -LISI10TA2 PO; +LISI10TA25 PO; -LISI1TAB25; -LISI1TAB25 PO; +LISI1TAB46; +LISI1TAB46 PO; -SULF1TAB35 PO; +SULF1TAB38 PO
[2021-06-07] MEDS ORDERED: NITROGLYCERIN 0.4 MG SL TABS BTL 25'S SL PRN (03:45)
[2021-06-07] MEDS ORDERED: ASPIRIN 81 MG CHEW (CHILDREN'S ASA) PO ONE (03:45)
[2021-06-07 04:10] LABS: BASOPHILS % (AUTO) 1 % (0-10); EOSINOPHILS # (AUTO) 0.3 10^3/uL (0.0-0.3); EOSINOPHILS % (AUTO) 5 % (0-10); HEMATOCRIT 41 % (40-54); HEMOGLOBIN 14.1 g/dL (13.3-17.7); LYMPHOCYTES # (AUTO) 1.2 10^3/uL (1.0-4.0); LYMPHOCYTES % (AUTO) 19 % (12-44); MEAN CORPUSCULAR HEMOGLOBIN 31 pg (25-34); MEAN CORPUSCULAR HGB CONC 35 g/dL (32-36); MEAN CORPUSCULAR VOLUME 90 fL (80-99); MEAN PLATELET VOLUME 10.5 fL (9.0-12.2); MONOCYTES # (AUTO) 0.5 10^3/uL (0.0-1.0); MONOCYTES % (AUTO) 8 % (0-12); NEUTROPHILS # (AUTO) 4.2 10^3/uL (1.8-7.8); NEUTROPHILS % (AUTO) 67 % (42-75); PLATELET COUNT 162 10^3/uL (130-400); WHITE BLOOD COUNT 6.3 10^3/uL (4.3-11.0)
--- NOTE | 2021-06-07 04:13 | ED Chest Pain ---
General Chief Complaint: Psych/Social Disorder Stated Complaint: COUGH,CHEST TIGHTNESS ON LEFT SIDE Source: patient History of Present Illness Date Seen by Provider: Jun 07, 2021 Time Seen by Provider: 03:45 Initial Comments PT ARRIVES VIA POV C/O CHEST PAIN--BEGAN APPROXIMATELY 30 MINUTES AGO PAIN IS LEFT LATERAL CHEST RATES PAIN 10 STATES IT IS "TIGHT" NO SHORTNESS OF BREATH OR PAIN WITH BREATHING NO FEVER/SWEATS/CHILLS NO NAUSEA/VOMITING/DIARRHEA NO SWELLING IN LEGS/FEET NO PALPITATIONS NO DIZZINESS OR SYNCOPE PT HAS HAD A COUGH FOR A MONTH--STATES IT IS ALLERGIES NO LOSS OF TASTE/SMELL NO SORE THROAT NO HEADACHE NO BODY ACHES HAS HAD BOTH COVID-19 VACCINES, LAST ONE IN JANUARY 2021 PT IS HOMELESS, HAS BEEN STAYING AT THE [place]/HOUSING FOR HOMELESS STATES HE GOT OFF WORK AT [employer] AT MIDNIGHT, AND STATES HIS "ROOM MATE" ( WHO IS HIS SON) HAD HIS VEHICLE AND WAS SUPPOSED TO PICK HIM UP FROM WORK AND NEVER SHOWED UP, SO PT WALKED HOME--APPROXIMATELY 2 MILES, AND WAS CARRYING 3 BAGS STATES HE DID NOT HAVE ANY SYMPTOMS WHILE HE WAS WALKING, BUT AFTER HE GOT BACK TO [place], HE "GOT UPSET" AND WAS ARGUING WITH HIS "ROOM MATE" ( HIS SON) AND THEN STARTED HAVING CHEST PAIN SON DROVE HIM HERE AND DROPPED HIM OFF. PT HAS HISTORY OF CAD, HTN, HYPERLIPIDEMIA, IDDM, PANCREATITIS PT IS SMOKER CARDIAC CATH IN 2008 SHOWED NON-OBSTRUCTIVE DISEASE. HAS NOT SEEN A DR IN ABOUT A YEAR. PCP: ANGELO-YORDAN Allergies and Home Medications Allergies Coded Allergies: codeine (Verified Allergy, Unknown, RASH, 05/31/10) Home Medications Atorvastatin Calcium 10 Mg Tablet, Unknown Dose PO HS, (Reported) Insulin Aspart 100 Unit/1 Ml Susp, Unknown Dose SQ AC, (Reported) Insulin Determir 1,000 Units/10 Ml Soln, Unknown Dose SQ HS, (Reported) Patient Home Medication List Home Medication List Reviewed: Yes Review of Systems Review of Systems Constitutional: no symptoms reported EENTM: No Symptoms Reported Respiratory: See HPI, Cough; Denies Shortness of Air Cardiovascular: See HPI, Chest Pain; Denies Edema, Denies Lightheadedness, Denies Palpitations, Denies Syncope Gastrointestinal: No Symptoms Reported Genitourinary: No Symptoms Reported Musculoskeletal: no symptoms reported Skin: no symptoms reported Psychiatric/Neurological: See HPI, Anxiety; Denies Headache, Denies Numbness, Denies Paresthesia, Denies Tingling, Denies Weakness Endocrine: No Symptoms Reported Hematologic/Lymphatic: No Symptoms Reported Past Dvekwep-Fltklk-Pmooxh Hx Patient Social History Tobacco Use?: Yes Tobacco type used: Pipe Smoking Status: Current Everyday Smoker Substance use?: No Alcohol Use?: Yes (HEAVY USE AT TIMES) Immunizations Up To Date Tetanus Booster (TDap): Unknown Influenza Vaccine Up-to-Date: Yes; Up-to-Date Second COVID19 Vaccination Ajit: 01/2021 Seasonal Allergies Seasonal Allergies: No Past Medical History Surgery/Hospitalization HX: C-SPINE SURGERY WITH HARDWARE IN PLACE CARDIAC CATH 2008--NON OBSTRUCTIVE DISEASE, DONE BY DR. FLOREZ Surgeries: Yes (neck surgery with hardware) Cardiac, Orthopedic Respiratory: No Cardiac: Yes Coronary Artery Disease, Heart Attack, High Cholesterol, Hypertension Neurological: No Reproductive Disorders: No Genitourinary: No Gastrointestinal: Yes Gastroesophageal Reflux, Pancreatitis, Irritable Bowel Musculoskeletal: Yes Arthritis Endocrine: Yes Diabetes, Insulin dep HEENT: No Cancer: No Psychosocial: Yes Anxiety, Depression Integumentary: No Blood Disorders: No Family Medical History No Pertinent Family Hx, Diabetes Physical Exam Vital Signs Vital Signs - First Documented 06/07/21 03:44 Temp 36.4 Pulse 89 Resp 18 B/P (MAP) 133/75 (94) Pulse Ox 97 O2 Delivery Room Air Capillary Refill : Height, Weight, BMI Height: 5'9.00" Weight: 180lbs. 8.0oz. 81.109894oa; 26.00 BMI Method:Stated General Appearance: No Apparent Distress, WD/WN, Other (UNK[place]) Neck: Normal Inspection Respiratory: Chest Non Tender, Normal Breath Sounds, No Accessory Muscle Use, No Respiratory Distress Cardiovascular: Regular Rate, Rhythm, No Edema, No JVD, No Murmur, Normal Peripheral Pulses Gastrointestinal: Non Tender, Soft Extremity: Normal Inspection Neurologic/Psychiatric: Alert, Oriented x3, No Motor/Sensory Deficits, bun icer II- XII Norm as Tested, Other (VERY FLAT AFFECT) Skin: Normal Color, Warm/Dry Progress/Results/Core Measures Results/Orders Lab Results Laboratory Tests Test 06/07/21 03:44 06/07/21 03:53 Range/Units B-Type Natriuretic Peptide 14.4 <100.0 PG/ML White Blood Count 6.3 4.3-11.0 10^3/uL Red Blood Count 4.50 4.30-5.52 10^6/uL Hemoglobin 14.1 13.3-17.7 g/dL Hematocrit 41 40-54 % Mean Corpuscular Volume 90 80-99 fL Mean Corpuscular Hemoglobin 31 25-34 pg Mean Corpuscular Hemoglobin Concent 35 32-36 g/dL Red Cell Distribution Width 12.0 10.0-14.5 % Platelet Count 162 130-400 10^3/uL Mean Platelet Volume 10.5 9.0-12.2 fL Immature Granulocyte % (Auto) 0 % Neutrophils (%) (Auto) 67 42-75 % Lymphocytes (%) (Auto) 19 12-44 % Monocytes (%) (Auto) 8 0-12 % Eosinophils (%) (Auto) 5 0-10 % Basophils (%) (Auto) 1 0-10 % Neutrophils # (Auto) 4.2 1.8-7.8 10^3/uL Lymphocytes # (Auto) 1.2 1.0-4.0 10^3/uL Monocytes # (Auto) 0.5 0.0-1.0 10^3/uL Eosinophils # (Auto) 0.3 0.0-0.3 10^3/uL Basophils # (Auto) 0.0 0.0-0.1 10^3/uL Immature Granulocyte # (Auto) 0.0 0.0-0.1 10^3/uL Erythrocyte Sedimentation Rate 17 0-30 MM/HR Prothrombin Time 13.5 12.2-14.7 SEC INR Comment 1.0 0.8-1.4 Activated Partial Thromboplast Time 26 24-35 SEC Sodium Level 135 135-145 MMOL/L Potassium Level 3.7 3.6-5.0 MMOL/L Chloride Level 100 98-107 MMOL/L Carbon Dioxide Level 25 21-32 MMOL/L Anion Gap 10 5-14 MMOL/L Blood Urea Nitrogen 19 H 7-18 MG/DL Creatinine 1.17 0.60-1.30 MG/DL Estimat Glomerular Filtration Rate 63 BUN/Creatinine Ratio 16 Glucose Level 245 H 70-105 MG/DL Calcium Level 8.7 8.5-10.1 MG/DL Corrected Calcium 8.7 8.5-10.1 MG/DL Magnesium Level 1.9 1.6-2.4 MG/DL Total Bilirubin 0.9 0.1-1.0 MG/DL Aspartate Amino Transf (AST/SGOT) 18 5-34 U/L Alanine Aminotransferase (ALT/SGPT) 38 0-55 U/L Alkaline Phosphatase 126 40-136 U/L Lactate Dehydrogenase 190 125-220 U/L Total Creatine Kinase 113 30-200 U/L Creatine Kinase MB 1.3 <6.6 NG/ML Myoglobin 149.0 H 10.0-92.0 NG/ML Troponin I < 0.028 <0.028 NG/ML C-Reactive Protein High Sensitivity 0.07 0.00-0.50 MG/DL Total Protein 7.4 6.4-8.2 GM/DL Albumin 4.0 3.2-4.5 GM/DL Amylase Level 51 25-125 U/L Lipase 17 8-78 U/L Procalcitonin 0.03 <0.10 NG/ML SARS-CoV-2 RNA (RT-PCR) Not Detected Not Detecte My Orders Orders - SOL CRENSHAW DO Cbc With Automated Diff (06/07/21 03:44) Magnesium (06/07/21 03:44) Chest 1 View, Ap/Pa Only (06/07/21 03:44) Ekg Tracing (06/07/21 03:44) Comprehensive Metabolic Panel (06/07/21 03:44) Myoglobin Serum (06/07/21 03:44) Protime With Inr (06/07/21 03:44) Partial Thromboplastin Time (06/07/21 03:44) O2 (06/07/21 03:44) Monitor-Rhythm Ecg Trace Only (06/07/21 03:44) Ed Iv/Invasive Line Start (06/07/21 03:44) Creatine Kinase (06/07/21 03:44) Creatine Kinase Mb (06/07/21 03:44) Lipase (06/07/21 03:44) Amylase (06/07/21 03:44) BNP (06/07/21 03:44) Troponin I (06/07/21 03:44) Nitroglycerin 0.4 Mg Btl 25's (Nitrostat (06/07/21 03:45) Aspirin Chewable Tablet (Baby Aspirin Ch (06/07/21 03:45) Procalcitonin (Pct) (06/07/21 03:46) Hs C Reactive Protein (06/07/21 03:46) Erythrocyte Sedimentation Rate (06/07/21 03:46) LDH (06/07/21 03:46) Covid 19 Inhouse Test (06/07/21 03:46) Ketorolac Injection (Toradol Injection) (06/07/21 05:00) Medications Given in ED Current Medications Medications Dose Ordered Sig/Yan Route Start Time Stop Time Status Last Admin Dose Admin Aspirin 324 mg ONCE ONCE PO 06/07/21 03:45 06/07/21 03:47 DC 06/07/21 03:57 324 MG Ketorolac Tromethamine 30 mg ONCE ONCE IVP 06/07/21 05:00 06/07/21 05:01 DC 06/07/21 05:02 30 MG Nitroglycerin 0.4 mg UD PRN SL 06/07/21 03:45 06/07/21 03:57 0.4 MG Vital Signs/I&O 06/07/21 06/07/21 03:44 03:45 Temp 36.4 Pulse 89 Resp 18 B/P (MAP) 133/75 (94) Pulse Ox 97 98 O2 Delivery Room Air Room Air Progress Progress Note : Progress Note PLACED IN ISOLATION ROOM PPE WORN COVID-19 TESTING PERFORMED GIVEN ASPIRIN 324 MG GIVEN NTG X 1 WITH DECREASE IN PAIN TO 7/10, ADDITIONAL NTG HELD DUE TO DROP IN BP. GAVE TORADOL WITH COMPLETE RELIEF OF PAIN PT SLEPT FOR REMAINDER OF ER STAY Initial ECG Impression Date: Jun 07, 2021 Initial ECG Impression Time: 03:49 Initial ECG Rate: 88 Initial ECG Rhythm: Normal Sinus (ANTERIOR Q WAVES) Initial ECG Comparisson: Unchanged Diagnostic Imaging Comments CXR--NO ACUTE PROCESS, PENDING RADIOLOGIST REVIEW Reviewed: Reviewed by Me Departure Impression Primary Impression: Left-sided chest wall pain Additional Impressions: Anxiety IDDM (insulin dependent diabetes mellitus) HTN (hypertension) Disposition: HOME, SELF-CARE Condition: Improved Departure-Patient Inst. Decision time for Depature: 05:40 Referrals: CALEB ROMAN MD (PCP/Family) Primary Care Physician Patient Instructions: Chest Pain, Adult ED, Anxiety, Adult (DC) Add. Discharge Instructions: TYLENOL AND MOTRIN NEEDED FOR PAIN TAKE YOUR MEDICATIONS PRESCRIBED FOLLOW UP WITH [facility] IN 2-3 DAYS FOR FURTHER CARE, RETURN TO ER IF SYMPTOMS RETURN All discharge instructions reviewed with patient and/or family. Voiced understanding. SOL CRENSHAW DO Jun 07, 2021 04:13
[2021-06-07 04:21] LABS: POTASSIUM 3.7 MMOL/L (3.6-5.0)
[2021-06-07 04:22] LABS: CALCIUM 8.7 MG/DL (8.5-10.1)
[2021-06-07 04:23] LABS: TOTAL PROTEIN 7.4 GM/DL (6.4-8.2)
[2021-06-07 04:24] LABS: PROTHROMBIN TIME PATIENT 13.5 SEC (12.2-14.7)
[2021-06-07 04:25] LABS: BILIRUBIN,TOTAL 0.9 MG/DL (0.1-1.0)
[2021-06-07 04:27] LABS: CREATININE SERUM 1.17 MG/DL (0.60-1.30)
[2021-06-07 04:30] LABS: MAGNESIUM 1.9 MG/DL (1.6-2.4)
[2021-06-07 04:39] LABS: CREATINE KINASE MB 1.3 NG/ML (<6.6)
[2021-06-07] MEDS ORDERED: KETOROLAC 30 MG/ML VIAL IVP ONE (05:00)
[2021-06-07 05:50] VITALS: BP 116/67
--- NOTE | 2021-06-07 06:26 | Diagnostic Imaging Report ---
INDICATION: Chest pain and tightness COMPARISON: 12/08/2014 FINDINGS: Single view of the chest demonstrates clear lungs bilaterally. The heart is normal. There is no pneumothorax or effusion. Osseous structures are age-appropriate. IMPRESSION: Negative chest Dictated by: Dictated on workstation # [id number]
== END 2021-06-07 05:51 | disposition home or self-care (01) ==
LOC: EDUNIT# 03:36 → ER 03:41
DX: I10 Essential (primary) hypertension (principal); E11.9 Type 2 diabetes mellitus without complications; F41.9 Anxiety disorder, unspecified; I25.10 Atherosclerotic heart disease of native coronary artery without angina pectoris; I25.2 Old myocardial infarction; E78.5 Hyperlipidemia, unspecified; F17.290 Nicotine dependence, other tobacco product, uncomplicated; Z95.9 Presence of cardiac and vascular implant and graft, unspecified; Z79.4 Long term (current) use of insulin; Z79.899 Other long term (current) drug therapy; Z20.822 Contact with and (suspected) exposure to COVID-19; Z59.0 Homelessness
CPT/HCPCS: 36415; 71045; 80053; 82150; 82550; 82553; 82947; 83615; 83690; 83735; 83874; 83880; 84145; 84484; 85025; 85610; 85652; 85730; 86141; 87636; 93005; 93041